=== PATIENT | female | born 1940 | race Caucasian/White ===

== ENCOUNTER 2020-10-30 21:08 | Inpatient (IN) | payer MEDICARE, OTHER ==
[~2020-10-30] VITALS: Ht 154.9 cm; Wt 48.7 kg
--- NOTE | 2020-10-30 21:08 | NUR ---
ANA FROM [facility] C/O HYPOTENSION AND PRESSURE ULCER. PER RA, REC'D 200ML NS EN ROUTE, PT AAOX0, NON VERBAL, NOT IN ACUTE DISTRESS, GOWNED, PLACED ON MONITOR, NOTED HYPOTENSIVE, PENDING ER PROVIDE REVAL
[2020-10-30] MEDS ORDERED: CEFEPIME 1 GM in IV D5W 50 ML IV ONE (22:00)
[2020-10-30] MEDS ORDERED: IV NS 0.9% 1,000 ML BAG IV ONE (22:00)
[2020-10-30] MEDS ORDERED: VANCOMYCIN 1 GM in IV D5W 250 ML IV ONE (22:00)
[2020-10-30 22:12] LABS: ALANINE AMINOTRANSFERASE 8 U/L (12-78); ALKALINE PHOSPHATASE 70 U/L (46-116); ASPARTATE AMINOTRANSFERASE 20 U/L (15-37); BILIRUBIN,DIRECT 0.1 mg/dL (0.0-0.2); BILIRUBIN,TOTAL 0.2 mg/dL (0.2-1.0); CALCIUM, SERUM 8.9 mg/dL (8.5-10.1); CARBON DIOXIDE 26 mmol/L (21-32); CHLORIDE 93 mmol/L (98-107); CREATININE 1.3 mg/dL (0.6-1.3); GLUCOSE 190 mg/dL (74-106); POTASSIUM 4.1 mmol/L (3.5-5.1); SODIUM SERUM 128 mmol/L (136-145); UREA NITROGEN, BLOOD 44 mg/dL (7-18)
[2020-10-30] MEDS ORDERED: NOREPINEPHRINE 4 MG/4 ML AMPUL IV ONE (22:40)
--- NOTE | 2020-10-30 23:00 | NUR ---
RT IJ CENTRAL LINE PLACED BY DR. PEARSON. XRAY CONFIRMATION ORDERED. AWAITING RESULTS
[2020-10-30 23:02] LABS: BASOPHILS % (AUTO) 0.1 % (0.0-2.0); EOSINOPHILS % (AUTO) 0.2 % (0.0-6.0); LYMPHOCYTES # (AUTO) 0.9 /CMM (0.8-4.8); LYMPHOCYTES % (AUTO) 6.3 % (20.0-44.0); MEAN CORPUSCULAR HGB CONC 33 g/dl (31.0-36.0); MEAN CORPUSCULAR VOLUME 106 fL (82-100); MONOCYTES # (AUTO) 1.1 /CMM (0.1-1.30); MONOCYTES % (AUTO) 7.9 % (2.0-12.0); NEUTROPHILS # (AUTO) 11.9 /CMM (1.8-8.9); NEUTROPHILS % (AUTO) 85.5 % (43.0-81.0); PLATELET COUNT (AUTO) 265 /CMM (150-450); WHITE BLOOD COUNT (AUTO) 13.9 K/uL (4.3-11.0)
[2020-10-30 23:04] LABS: RED BLOOD CELL COUNT(AUTO) 1.59 MIL/uL (4.0-5.2)
[2020-10-30 23:06] LABS: HEMATOCRIT 17 % (33-45); HEMOGLOBIN 5.6 g/dL (11.5-14.8)
[2020-10-30 23:07] LABS: BILIRUBIN,URINE NEGATIVE (NEGATIVE); COLOR,URINE YELLOW (YELLOW); LEUKOCYTE ESTERASE ,URINE MODERATE (NEGATIVE); NITRITE, URINE NEGATIVE (NEGATIVE); PROTEIN,URINE 100 mg/dl (NEGATIVE); UGLUCOSE NEGATIVE (NEGATIVE); UROBILINOGEN,URINE 0.2 EU/dL (0.2)
[2020-10-30 23:16] LABS: BACTERIA,URINE 2+ /HPF (None Seen); RBC,URINE TOO NUMEROUS TO COUN /HPF (0-2); WBC,URINE TOO NUMEROUS TO COUN /HPF (0-3)
[2020-10-30 23:17] LABS: SQUAMOUS EPITHELIAL CELL,UR Many /HPF (None Seen); URINE AMORPHOUS URATE Many /HPF (None Seen)
[2020-10-30 23:18] LABS: LYMPHOCYTES % (MANUAL) 7 % (16-48); NEUTROPHILS % (MANUAL) 86 (42-76)
[2020-10-30 23:19] LABS: MONOCYTES % (MANUAL) 7 % (0-11.0)
[2020-10-31] MEDS ORDERED: NOREPINEPHRINE 8 MG in IV NS 0.9% 242 ML IV PRN ×2
[2020-10-31] MEDS ORDERED: ZOLPIDEM TARTRATE 5 MG TABLET PO PRN
[2020-10-31] MEDS ORDERED: ONDANSETRON HCL/PF 4 MG/2 ML VIAL IVP PRN
[2020-10-31] MEDS ORDERED: Z GUARD REMEDY 2 OZ OINT TP PRN
[2020-10-31] MEDS ORDERED: ACETAMINOPHEN 325 MG TABLET PO PRN
[2020-10-31] MEDS ORDERED: MAGNESIUM HYDROXIDE 30 ML UDC PO PRN
[2020-10-31] MEDS ORDERED: HYDROCODONE/APAP 5/325MG TABLET PO PRN
[2020-10-31] MEDS ORDERED: MAG HYDROX/AL HYDROX/SIMETH 30 ML UDC PO PRN
--- NOTE | 2020-10-31 | NUR ---
LEVOPHED STARTED ON R IJ, TITRATED PER PROTOCOL.
[2020-10-31] MEDS ORDERED: CEFEPIME 1 GM VIAL ONE (02:08)
[2020-10-31] MEDS ORDERED: VANCOMYCIN 1 GM VIAL ONE (02:08)
[2020-10-31] MEDS: IV NS 0.9% 1,000 ML IV SCH ×3 (02:21→20:12)
[2020-10-31] MEDS: CEFEPIME 1 GM in IV D5W 50 ML IV SCH (02:21)
[2020-10-31 02:36] LABS: HEMOGLOBIN 6.3 g/dL (11.5-14.8)
[2020-10-31 05:01] LABS: BASOPHILS % (AUTO) 0.2 % (0.0-2.0); EOSINOPHILS % (AUTO) 0.1 % (0.0-6.0); HEMATOCRIT 33 % (33-45); HEMOGLOBIN 10.9 g/dL (11.5-14.8); LYMPHOCYTES # (AUTO) 1.1 /CMM (0.8-4.8); LYMPHOCYTES % (AUTO) 10.6 % (20.0-44.0); MEAN CORPUSCULAR HGB CONC 33 g/dl (31.0-36.0); MEAN CORPUSCULAR VOLUME 108 fL (82-100); MONOCYTES # (AUTO) 0.7 /CMM (0.1-1.30); MONOCYTES % (AUTO) 6.7 % (2.0-12.0); NEUTROPHILS # (AUTO) 8.4 /CMM (1.8-8.9); NEUTROPHILS % (AUTO) 82.4 % (43.0-81.0); PLATELET COUNT (AUTO) 247 /CMM (150-450); RED BLOOD CELL COUNT(AUTO) 3.06 MIL/uL (4.0-5.2); WHITE BLOOD COUNT (AUTO) 10.3 K/uL (4.3-11.0)
[2020-10-31 05:11] LABS: BILIRUBIN,DIRECT 0.1 mg/dL (0.0-0.2); BILIRUBIN,TOTAL 0.3 mg/dL (0.2-1.0); TOTAL PROTEIN, SERUM 6.8 g/dL (6.4-8.2)
[2020-10-31 05:13] LABS: CALCIUM, SERUM 8.1 mg/dL (8.5-10.1); CREATININE 1.3 mg/dL (0.6-1.3); MAGNESIUM 1.9 mg/dL (1.8-2.4); PHOSPHORUS 3.8 mg/dL (2.5-4.9); POTASSIUM 3.5 mmol/L (3.5-5.1)
--- NOTE | 2020-10-31 05:20 | NUR ---
LAB RESULTED HGB 10.9. CALLED DR. MOULTON FOR POSSIBLE REDRAW, PT HAS NOT YET REC'D ANY PRBC AT THIS TIME. PER LAB HOLD PRBC ORDER. HGB ORIGINALLY 6.3 FROM PREV DRAW
[2020-10-31 06:48] LABS: HEMOGLOBIN 6.5 g/dL (11.5-14.8)
--- NOTE | 2020-10-31 06:49 | NUR ---
RPT H/H RESULTED, HGB 6.5, WILL RESUME AND GIVE 3UNITS PRBC ORDERED. DR. KENNEY TELLEZ
--- NOTE | 2020-10-31 07:30 | NUR ---
PATIENT A/OX1, 1ST UNIT OF PRBC INITIATED.
[2020-10-31] MEDS ORDERED: MONT10TA22 GT (07:45)
[2020-10-31] MEDS ORDERED: GABA-532 GT (07:45)
[2020-10-31] MEDS ORDERED: MULT-447 GT (07:45)
[2020-10-31] MEDS ORDERED: ACET-868 GT ×2 (07:45)
[2020-10-31] MEDS ORDERED: BISA10SU11 RC (07:45)
[2020-10-31] MEDS ORDERED: ARGI1POW13 GT (07:45)
[2020-10-31] MEDS ORDERED: SODI480S2 TD (07:45)
[2020-10-31] MEDS ORDERED: MIRT15TA7 GT (07:45)
[2020-10-31] MEDS ORDERED: ESCI5TAB GT (07:45)
[2020-10-31] MEDS ORDERED: CHOL100062 GT (07:45)
[2020-10-31] MEDS ORDERED: INSU100V39 SQ (07:45)
[2020-10-31] MEDS ORDERED: DOCU50LI GT (07:45)
[2020-10-31] MEDS ORDERED: AMIN30LI2 GT (07:45)
[2020-10-31] MEDS ORDERED: CLOT15CR5 TP (07:45)
[2020-10-31] MEDS ORDERED: BETH50TA2 GT (07:45)
[2020-10-31] MEDS ORDERED: POLY17PO4 GT (07:45)
[2020-10-31] MEDS ORDERED: METO25TA20 GT (07:45)
[2020-10-31] MEDS ORDERED: XEROFORM TD (07:45)
[2020-10-31] MEDS ORDERED: COLL30OI TP (07:45)
[2020-10-31] MEDS ORDERED: ASCO-352 GT (07:45)
[2020-10-31] MEDS ORDERED: FERR300L GT (07:45)
[2020-10-31] MEDS ORDERED: SENN-261 GT (07:45)
[2020-10-31] MEDS ORDERED: APIX5TAB GT (07:45)
[2020-10-31] MEDS ORDERED: GEL100GE TD (07:45)
[2020-10-31] MEDS ORDERED: ZINC1CAP2 GT (07:45)
[2020-10-31] MEDS ORDERED: LEVO75TA7 GT (07:45)
[2020-10-31] MEDS ORDERED: LACT10SO3 GT (07:45)
[2020-10-31] MEDS ORDERED: NUT.237L30 GT (07:45)
[2020-10-31] MEDS ORDERED: QUET25TA GT (07:45)
--- NOTE | 2020-10-31 08:00 | NUR ---
LEVOPHED HELD AT THIS TIME, BP 169/100.
--- NOTE | 2020-10-31 09:52 | NUR ---
PATIENT'S 1ST UNIT COMPLETED. VSS. NO DISTRESS NOTED. PATIENT HAD NO ADVERSE REACTION, NO S/SX OF FLUID OVERLOAD AT THIS TIME.
--- NOTE | 2020-10-31 10:04 | NUR ---
2ND UNIT OF PRBC STARTED. VSS.
--- NOTE | 2020-10-31 11:34 | NUR ---
PATIENT RESTING, NO DISTRESS NOTED, VSS.
--- NOTE | 2020-10-31 12:28 | NUR ---
2ND UNIT OF PRBC COMPLETED. PHLEB AT BEDSIDE FOR REPEAT CDC DRAW. WILL INFORM NIKO GORMAN OF RESULT AND WILL VERIFY 3RD PRBC ORDER.
[2020-10-31 13:37] LABS: HEMOGLOBIN 11.1 g/dL (11.5-14.8)
--- NOTE | 2020-10-31 14:22 | NUR ---
REPEAT HGB IS 11.1 INFORMED NIKO GORMAN, GAVE ORDER TO HOLD 3RD UNIT OF PRBC.
--- NOTE | 2020-10-31 16:11 | NUR ---
REPORT GIVEN TO MELANIE GARCIA FOR JOSE.
--- NOTE | 2020-10-31 16:44 | NUR ---
bed 200
--- NOTE | 2020-10-31 17:15 | NUR ---
patient transferred to room 200 via acls protocol. Patient's NS IV fluids infusing and endorsed to Ty GARCIA.
[2020-10-31 18:34] LABS: OCCULT BLOOD STOOL NEGATIVE (NEGATIVE)
--- NOTE | 2020-10-31 19:00 | NUR ---
FIRE CONTROL TECHNICIAN B ADMITTING NOTES ADMITTED PATIENT FROM ER. AWAKE AND VERBALLY RESPONSIVE, A/O X1, CONFUSED, SPEAKS FOREIGN LANGUAGE. BREATHING EVEN AND UNLABORED, TOLERATING ROOM AIR. CURRENTLY NPO. IV LINES NOTED ON R IJ PICC, R HAND #20, AND RAC #20; PATENT AND INTACT. PHOTOS OF SKIN ISSUES TAKEN AND RECORDED; DRESSING CHANGED APPLICABLE. GTUBE IS INTACT W/ DRESSING C/D/I. ARMB[place] PLACED. BELONGINGS LIST IN CHART. SAFETY MEASURES IN PLACE: BED IS LOCKED AND ON LOWEST POSITION, SIDE RAILS UP X2, CALL LIGHT WITHIN REACH. WILL ENDORSE TO PACKAGING DESIGN ENGINEER RN FOR JOSE.
[2020-10-31 19:08] LABS: HEMOGLOBIN 9.4 g/dL (11.5-14.8)
--- NOTE | 2020-10-31 19:45 | NUR ---
COMPRESS MACHINE OPERATOR OPENING NOTES PATIENT IN BED A/OX1. ON ROOM AIR AND TOLERATING WELL. NO S/S OF DISTRESS NOTED AT THIS TIME. ON NPO DIET. R IJ INTACT; DRESSING C/D/I. GTUBE PEG PATENT AND INTACT. IV R HAND # 20; PATENT AND INTACT. RAC #20; PATENT AND INTACT. SAFETY MEASURES IN PLACE; BED IS LOWEST LOCKED POSITION; SIDE RAILS UPX2; CALL LIGHT WITHIN REACH. WILL CONTINUE TO MONITOR.
[2020-10-31 20:00] VITALS: BP 110/64
[2020-11-01] VITALS (13 sets, daily range): BP systolic 48–121; BP diastolic 22–72
[2020-11-01] MEDS ORDERED: CEFEPIME 1 GM VIAL ONE (01:00)
[2020-11-01 01:16] LABS: HEMOGLOBIN 9.8 g/dL (11.5-14.8)
[2020-11-01] MEDS: CEFEPIME 1 GM in IV D5W 50 ML IV SCH ×4 (01:39→22:13)
--- NOTE | 2020-11-01 06:45 | NUR ---
PRINTING EQUIPMENT MECHANIC NOTES - PATIENT NOTED WITH SATURATED OOZING BLEEDING AND CLOTS ON PI ON R BUTTOCK; CHANGED DRESSING. 0550 REASSESSED PATIENT AT BP 48/22, P 56. CALLED RAPID RESPONSE; CHARGE NURSE AWARE. CALLED DR. MOULTON AND ORDERED FOR NS 500ML BOLUS, STAT CBC. INFUSED NS 500ML BOLUS 0615 BP 65/36, P 82 0630 BP 74/42, P 83 PATIENT AWAKE AND TALKING; NO CHANGES IN LOC. SKIN COOL TO TOUCH AND PALE. WILL CONTINUE TO MONITOR.
[2020-11-01 06:55] LABS: BASOPHILS % (AUTO) 0.3 % (0.0-2.0); EOSINOPHILS % (AUTO) 2.1 % (0.0-6.0); LYMPHOCYTES # (AUTO) 1.2 /CMM (0.8-4.8); LYMPHOCYTES % (AUTO) 11.2 % (20.0-44.0); MEAN CORPUSCULAR HGB CONC 35 g/dl (31.0-36.0); MEAN CORPUSCULAR VOLUME 92 fL (82-100); MONOCYTES # (AUTO) 0.8 /CMM (0.1-1.30); MONOCYTES % (AUTO) 7.4 % (2.0-12.0); NEUTROPHILS # (AUTO) 8.6 /CMM (1.8-8.9); PLATELET COUNT (AUTO) 195 /CMM (150-450); WHITE BLOOD COUNT (AUTO) 10.9 K/uL (4.3-11.0)
[2020-11-01] MEDS: IV NS 0.9% 1,000 ML IV SCH (07:19)
[2020-11-01 07:31] LABS: ALBUMIN 1.5 g/dL (3.4-5.0); BILIRUBIN,TOTAL 0.3 mg/dL (0.2-1.0); CALCIUM, SERUM 7.8 mg/dL (8.5-10.1); MAGNESIUM 1.7 mg/dL (1.8-2.4); PHOSPHORUS 2.9 mg/dL (2.5-4.9); POTASSIUM 3.4 mmol/L (3.5-5.1)
--- NOTE | 2020-11-01 07:34 | NUR ---
CONSTRUCTION PROJECT COORDINATOR CLOSING NOTES PATIENT IN BED A/OX1; RESPONSIVE. ON ROOM AIR AND TOLERATING WELL. ON EXTERNAL CARDIAC MONITORING READING SR AND HR AT 83. ON NPO DIET. R IJ INTACT; DRESSING INTACT. GTUBE PEG PATENT AND INTACT. IV R HAND # 20; PATENT AND INTACT. RAC #20; PATENT AND INTACT. DRESSING ON BILATERAL BUTTOCKS AND BILATERAL HEELS KEPT C/D/I. MARIE FROM LAB REPORTED CRITICAL LABS: HGB 6.2 AND HCT 18.0. SAFETY MEASURES IN PLACE; BED IS LOWEST LOCKED POSITION; SIDE RAILS UPX2; CALL LIGHT WITHIN REACH. WILL CONTINUE TO MONITOR. ENDORSE PLAN OF CARE TO ONCOMING MORNING NURSE.
[2020-11-01 07:39] LABS: RED BLOOD CELL COUNT(AUTO) 1.93 MIL/uL (4.0-5.2)
[2020-11-01 07:46] LABS: HEMATOCRIT 18 % (33-45); HEMOGLOBIN 6.2 g/dL (11.5-14.8)
[2020-11-01] MEDS ORDERED: CELLULOSE,OXIDIZED 1 EA PACK MC STA (07:55)
--- NOTE | 2020-11-01 08:30 | NUR ---
WOUND CARE CONSULT: PT PRESENTS WITH MULTIPLE WOUNDS, PRESENT ON ADMISSION INCLUDING RT BUTTOCK WOUND WHICH HAS BEEN BLEEDING (CONSTANT OOZING OF BLOOD). DR MATA AND DR MARTINEZ NOTIFIED OF SURGICAL AND DPM CONSULT REQUESTS. RECEIVED ORDERS FROM LUCIANO APONTE P.A. FOR SURGICEL TO BE APPLIED TO RT BUTTOCK WOUND FOR HEMOSTASIS. 3 PIECES OF SUGICEL (4X8) APPLIED AND HEMOSTASIS ACHIEVED. COVERED WITH GAUZE, ABD PADS APPLIED PRESSURE DRESSING WITH SURGICAL TAPE. PT TOLERATED WELL. DISCUSSED WITH Gavin LUONG P.A. RECOMMENDATIONS MADE FOR SKIN PROTECTION. DISCUSSED WITH NURSING STAFF. FIRST STEP LOW AIRLOSS MATTRESS ORDERED.
--- NOTE | 2020-11-01 10:18 | NUR ---
TELE/RN NOTE PER NUHA GAO TO USE RIGHT IJ FOR BLOOD TRANSFUSION AND MEDICATION ADMINISTRATION.
[2020-11-01 11:24] LABS: BAND % (MANUAL) 16 % (0.0-5.0); LYMPHOCYTES % (MANUAL) 8 % (16-48); MONOCYTES % (MANUAL) 4 % (0-11.0); NEUTROPHILS % (MANUAL) 72 (42-76)
--- NOTE | 2020-11-01 11:28 | NUR ---
TELE/RN BLOOD TRANSFUSION IN PROCESS. NO ADVERSE SIDE EFFECTS NOTED.
--- NOTE | 2020-11-01 12:52 | NUR ---
RN NOTE MAXIPINE DUE AT 0900 IS STARTED LATE DUE TO PATIENT WAS RECEIVING BLOOD TRANSFUSION VIA RIGHT IJ AND THE PATIENT HAS ONLY RIGHT IJ FOR MEDICATION FOR USE. PHARMACY IS MADE AWARE.
[2020-11-01] MEDS: Magnesium 1GM/D5W 100ML PREMIX 100 ML IV SCH ×2 (13:50→15:07)
[2020-11-01] MEDS: IV NS 0.9% 1,000 ML IV PRN ×2 (13:53→22:07)
[2020-11-01 15:36] LABS: HEMOGLOBIN 7.1 g/dL (11.5-14.8)
--- NOTE | 2020-11-01 15:56 | NUR ---
MS/RN NOTE RECEIVED A CALL FROM LAB REPORTING THAT THE PATIENT IS POSITIVE MRSA OF NARES. NUHA NAGEL IS MADE AWARE WITH A NEW ORDER. NOTED AND CARRIED OUT.
[2020-11-01] MEDS: POTASSIUM CL. PREMIX PERIPHER. 50 ML IV SCH ×2 (16:44→17:54)
[2020-11-01] MEDS: DAKINS QUARTER STRENGTH (0.125%) 480 ML BOTTLE TOP SCH (17:17)
[2020-11-01] MEDS ORDERED: ANESTHESIA TRAY IN PYXIS 1 EA TRAY MC ONE (18:25)
--- NOTE | 2020-11-01 18:26 | NUR ---
TELE/RN NOTE THE PATIENT ALERT AND ORIENTED X1. DENIES PAIN. IN ROOM AIR AND OXYGEN SATURATION IS AT 98%. DENIES SOB. RESPIRATION REGULAR AND UNLABORED. PATIENT IS IN NO APPARENT DISTRESS. RIGHT IV INTACT. GT PRESENT AND NOT IN USE. WOUND DRESSINGS ON PER ORDER. NO BLEEDING FROM THE WOUNDS NOTED. BED LOW AND LOCKED. SIDE RAILS UP X3. CALL LIGHT WITHIN REACH. WILL ENDORSE TO ARTS THERAPIST. CREDIT HISTORIAN CLOSING NOTES PATIENT IN BED A/OX1; RESPONSIVE. ON ROOM AIR AND TOLERATING WELL. ON EXTERNAL CARDIAC MONITORING READING SR AND HR AT 83. ON NPO DIET. R IJ INTACT; DRESSING INTACT. GTUBE PEG PATENT AND INTACT. IV R HAND # 20; PATENT AND INTACT. RAC #20; PATENT AND INTACT. DRESSING ON BILATERAL BUTTOCKS AND BILATERAL HEELS KEPT C/D/I. MARIE FROM LAB REPORTED CRITICAL LABS: HGB 6.2 AND HCT 18.0. SAFETY MEASURES IN PLACE; BED IS LOWEST LOCKED POSITION; SIDE RAILS UPX2; CALL LIGHT WITHIN REACH. WILL CONTINUE TO MONITOR. ENDORSE PLAN OF CARE TO ONCOMING MORNING NURSE.
--- NOTE | 2020-11-01 18:29 | NUR ---
TELE/RN NOTE THE PATIENT ALERT AND ORIENTED X1. DENIES PAIN. IN ROOM AIR AND OXYGEN SATURATION IS AT 98%. DENIES SOB. RESPIRATION REGULAR AND UNLABORED. PATIENT IS IN NO APPARENT DISTRESS. RIGHT IV INTACT. GT PRESENT AND NOT IN USE. WOUND DRESSINGS ON PER ORDER. NO BLEEDING FROM THE WOUNDS NOTED. BED LOW AND LOCKED. SIDE RAILS UP X3. CALL LIGHT WITHIN REACH. WILL ENDORSE TO ELEMENTARY READING TUTOR. Addendum: 11/01/20 at 1835 by DUKE VERGARA RN TELE/RN NOTE TELE BOX READING IS SR 79.
--- NOTE | 2020-11-01 19:00 | NUR ---
RECEIVED EYES CLOSED WILL OPEN TO TOUCH AND STIMULI EGD TEAM TO TAKE HER FOR EGD EXAM
[2020-11-01] MEDS: MUPIROCIN OINT 2% 22 GM TUBE NS SCH ×2 (20:47→22:14)
[2020-11-01 21:09] LABS: HEMOGLOBIN 6.9 g/dL (11.5-14.8)
[2020-11-01] MEDS: VANCOMYCIN 1 GM in IV D5W 250 ML IV SCH (22:07)
--- NOTE | 2020-11-01 22:30 | NUR ---
CALL PLACED TO MD MOULTON LATEST H/H 6.06/20 INSTRUCTED TO GIVE 1 UNIT PRBCS AND DO H/H 1 HOUR AFTER THE INFUSION 2ND TOLD HIM THE RESULTS OF THE EGD FINDING SHOWING GASTRITIS AND ORDER TO START THE GT FEEDING...TO START THE FEEDING SAME S SHE HAD AT [facility]...GLUCERNA 1.2 START AT 2PM AND OFF AT 10AM RUNNING FOR 20 HOURS QDAY RATE 50 ML/HOUR AWARE THAT THE BLOOD CULTURES DONE 10/31 1 BOTTLE SHOWED GRAM +COCCI CLUSTERS AND THE 2ND BOTTLE IS BEING SENT OUT TO BE TESTED
--- NOTE | 2020-11-01 22:55 | NUR ---
BLOOD STARTED H/H 6.04/19 AT 2100 THIS EVEVNING TO BE GIVEN 1 UNIT PRBCS
[2020-11-02] VITALS (7 sets, daily range): BP systolic 108–142; BP diastolic 53–80
--- NOTE | 2020-11-02 04:18 | NUR ---
CLOSING NOTES: ALERT TO SELF SPEAKS FARSI AND SOME DANISH SELECTIVE WHEN SHE WANT TO SPEAK AND WHEN SHE DOES SHOTE COMMENTS "WHATS UP!" WAS ONE SHE SAID. H/H 2100 BLOOD DRAW WAS 6.06/20 SP EGD 11/01 @ 1900...SHOWING GASTRITIS BX WAS DONE ...BLOOD CULTURES DONE 10/31 1 BOTTLE SHOWS COCCI + CLUSTERS MD MOULTON CALLED AND MADE AWARE. ORDERS TO GIVE 1 UNIT PRBCS H/H IN THE AM START PEG TUBE FEEDING SAME SHE WAS RECEIVING AT [facility]...GLUCERNA 1.2 50 ML PER HOUR FOR 20 HOURS VIA PUMP 1000ML/1200KCAL PER DAY TURN ON @ 2:00PM AND OFF @ 10:00AM OR UNTIL VOLUME COMPLETED AFEBILE THIS 12 HOURS GONZALES DRAINAGE CLEAR YELLOW
[2020-11-02 06:24] LABS: BASOPHILS # (AUTO) 0.1 /CMM (0.0-0.2); BASOPHILS % (AUTO) 0.6 % (0.0-2.0); EOSINOPHILS % (AUTO) 2.4 % (0.0-6.0); HEMATOCRIT 24 % (33-45); HEMOGLOBIN 8.3 g/dL (11.5-14.8); LYMPHOCYTES # (AUTO) 1.4 /CMM (0.8-4.8); LYMPHOCYTES % (AUTO) 14.6 % (20.0-44.0); MEAN CORPUSCULAR HGB CONC 34 g/dl (31.0-36.0); MEAN CORPUSCULAR VOLUME 91 fL (82-100); MONOCYTES # (AUTO) 0.8 /CMM (0.1-1.30); MONOCYTES % (AUTO) 8.2 % (2.0-12.0); NEUTROPHILS # (AUTO) 7.1 /CMM (1.8-8.9); NEUTROPHILS % (AUTO) 74.2 % (43.0-81.0); PLATELET COUNT (AUTO) 174 /CMM (150-450); RED BLOOD CELL COUNT(AUTO) 2.67 MIL/uL (4.0-5.2); WHITE BLOOD COUNT (AUTO) 9.5 K/uL (4.3-11.0)
[2020-11-02 06:29] LABS: CALCIUM, SERUM 7.9 mg/dL (8.5-10.1); CREATININE 0.9 mg/dL (0.6-1.3); MAGNESIUM 2.3 mg/dL (1.8-2.4); PHOSPHORUS 2.6 mg/dL (2.5-4.9); POTASSIUM 3.1 mmol/L (3.5-5.1)
--- NOTE | 2020-11-02 07:30 | NUR ---
ms rn received on bed, awake,confused,not in any form of distress,respirations even and unlabored,no sob noted,patient on room air,will monitor patient.
[2020-11-02] MEDS ORDERED: CELLULOSE,OXIDIZED 1 EA PACK MC ONE (08:00)
[2020-11-02 08:07] LABS: PTH, INTACT 103 pg/mL (15-65)
[2020-11-02] MEDS ORDERED: POTASSIUM CHLORIDE 20 MEQ POWDER PACKET PO ONE (09:00)
--- NOTE | 2020-11-02 09:00 | NUR ---
ms rn due meds given,tolerated well.
[2020-11-02] MEDS: DAKINS QUARTER STRENGTH (0.125%) 480 ML BOTTLE TOP SCH (09:28)
[2020-11-02] MEDS: THERAHONEY GEL 1.5 OZ TUBE TP SCH (09:29)
[2020-11-02] MEDS ORDERED: DEXTROSE 50%-WATER 50 ML DISP.SYRIN IV PRN (09:30)
--- NOTE | 2020-11-02 12:00 | NUR ---
ms rn was seen by mary wound pa,right hip not bleeding anymore, no debridement done,packing and dressing done by rashaun.
[2020-11-02] MEDS ORDERED: LIDOCAINE 1%-EPI 1:100,000 50 ML VIAL IJ ONE (12:30)
--- NOTE | 2020-11-02 12:30 | NUR ---
ms rn patient was transferred to [facility],report given to lukas woodruff for papito.
[2020-11-02] MEDS: BLOOD SUGAR DIAGNOSTIC 1 EACH STRIP IN SCH ×3 (12:31→23:27)
[2020-11-02] MEDS ORDERED: SILVER NITRATE APPLICATOR 1 EA BOX TP ONE (13:00)
[2020-11-02 13:06] LABS: *SPE A/G RATIO 0.7 (0.7-1.7); *SPE ALBUMIN 1.8 g/dL (2.9-4.4); *SPE ALPHA-1-GLOBULIN 0.3 g/dL (0.0-0.4); *SPE ALPHA-2-GLOBULIN 0.6 g/dL (0.4-1.0); *SPE BETA GLOBULIN 0.7 g/dL (0.7-1.3); *SPE GLOBULIN, TOTAL 2.7 g/dL (2.2-3.9); *SPE M-SPIKE Not Observed g/dL (Not Observed); *SPEGAMMA GLOBULIN 1.1 g/dL (0.4-1.8)
--- NOTE | 2020-11-02 13:11 | NUR ---
Social Service APS Report: and [facility] request marriage and family social worker to do a APS wound report on patient Marla Galvan. Pt is located in [facility] 2nd floor room 200/ bed 1. SW did a online APS report at 1300pm (Intake [id number]). SW gave all proper information to the APS report and will wait for APS assistance if needed. Plan: SW did a APS wound online at report at 1300pm (Intake [id number]). SW will give any assistance if APS contacts social service office ([phone]).
[2020-11-02] MEDS: IV NS 0.9% 1,000 ML IV PRN (14:55)
[2020-11-02] MEDS: GLUCERNA 1.2 1,000 ML BOTTLE GT PRN (14:55)
[2020-11-02] MEDS: VANCOMYCIN 1 GM in IV D5W 250 ML IV SCH (15:02)
[2020-11-02] MEDS ORDERED: LIDOCAINE 1% INJ 50 ML MDV IJ ONE (16:00)
[2020-11-02] MEDS: SENNOSIDES 8.6 MG TABLET GT SCH (16:53)
[2020-11-02] MEDS: QUETIAPINE FUMARATE 25 MG TABLET GT SCH (16:53)
[2020-11-02] MEDS: METOPROLOL TARTRATE 25 MG TABLET GT SCH (16:53)
[2020-11-02] MEDS: FERROUS SULFATE UDC 300 MG/5 ML UDC GT SCH (16:53)
[2020-11-02] MEDS: BETHANECHOL CHLORIDE (25 MG) 25 MG TABLET PO SCH (16:53)
[2020-11-02] MEDS: PROSOURCE / PROSTAT (PYXIS) 30 ML UDC GT SCH (16:54)
[2020-11-02] MEDS ORDERED: BETHANECHOL CHLORIDE 50 MG TABLET PO SCH (17:00)
[2020-11-02] MEDS ORDERED: Medication Not On Formulary EA (Arginine/Ascorbate Sod/Vite AC (Arginaid Powder) 1 EACH) GT SCH (17:00)
[2020-11-02] MEDS: GABAPENTIN 100 MG CAPSULE GT SCH (17:09)
--- NOTE | 2020-11-02 18:51 | NUR ---
MS/RN - Shift remarks Patient opens eyes to voice and touch, afebrile, stable on room air, no s/s of pain, no active bleeding, no new issues, tolerating tube feeding well. Powell catheter in place for wound management. Patient for wound debridement on bilateral hips tomorrow, obtained consent from brother Frederick Galvan. Aspiration precautions maintained. Will continue with current medical management.
[2020-11-02] MEDS: MUPIROCIN OINT 2% 22 GM TUBE NS SCH (21:00)
[2020-11-02] MEDS: CEFEPIME 1 GM in IV D5W 50 ML IV SCH (21:16)
[2020-11-02] MEDS: INSULIN REGULAR, HUMAN 100 UNIT/ML 3 ML VIAL SQ PRN (22:43)
[2020-11-02] MEDS: MONTELUKAST SODIUM (10MG) 10 MG TABLET GT SCH (23:45)
[2020-11-02] MEDS: MIRTAZAPINE 15 MG TABLET GT SCH (23:45)
--- NOTE | 2020-11-03 02:54 | NUR ---
MS/TELE/RN G TUBE FEEDING RESIDUAL AT 20:00 [address] CONSTANTLY CHECKED THE RESIDUAL, AT 02:00, RESIDUAL WAS ZERO, RESTARTED THE FEEDING AT THIS TIME. WILL MONITOR.
[2020-11-03] MEDS: BLOOD SUGAR DIAGNOSTIC 1 EACH STRIP IN SCH ×4 (05:47→22:34)
[2020-11-03] MEDS: IV NS 0.9% 1,000 ML IV PRN ×2 (05:47→20:51)
--- NOTE | 2020-11-03 06:47 | NUR ---
MS/TELE/RN MORNING CARE WAS DONE, TOTAL LINEN CHANGE RENDERED, BOWEL MOVEMENT NOTED, SOFT, BROWN, GOOD SKIN CARE DONE, ORAL CARE DONE, G TUBE FEEDING INFUSING, NO RESIDUAL NOTED, HOB ELEVATED, ALL NEEDS ATTENDED AT THIS TIME, WILL CONTINUE TO MONITOR.
[2020-11-03 08:00] VITALS: BP 150/74
--- NOTE | 2020-11-03 08:00 | NUR ---
MS/RN OPENING NOTES RECEIVED PATIENT ON BED AWAKE NONVERBAL. PATIENT IS ON ROOM AIR SATURATION 100%. PATIENT IN NO APPARENT RESPIRATORY DISTRESS NOTED. NO SIGN AND SYMPTOM OF PAIN NOTED AT THIS TIME. WILL CONTINUE TO MONITOR.
[2020-11-03 08:16] LABS: BASOPHILS # (AUTO) 0.1 /CMM (0.0-0.2); BASOPHILS % (AUTO) 0.5 % (0.0-2.0); EOSINOPHILS % (AUTO) 2.8 % (0.0-6.0); HEMATOCRIT 28 % (33-45); HEMOGLOBIN 9.1 g/dL (11.5-14.8); LYMPHOCYTES # (AUTO) 1.3 /CMM (0.8-4.8); LYMPHOCYTES % (AUTO) 12.4 % (20.0-44.0); MEAN CORPUSCULAR HGB CONC 33 g/dl (31.0-36.0); MEAN CORPUSCULAR VOLUME 94 fL (82-100); MONOCYTES # (AUTO) 0.8 /CMM (0.1-1.30); MONOCYTES % (AUTO) 7.4 % (2.0-12.0); NEUTROPHILS # (AUTO) 8.1 /CMM (1.8-8.9); NEUTROPHILS % (AUTO) 76.9 % (43.0-81.0); PLATELET COUNT (AUTO) 224 /CMM (150-450); RED BLOOD CELL COUNT(AUTO) 2.91 MIL/uL (4.0-5.2); WHITE BLOOD COUNT (AUTO) 10.6 K/uL (4.3-11.0)
[2020-11-03 08:32] LABS: CALCIUM, SERUM 8.3 mg/dL (8.5-10.1); CREATININE 0.9 mg/dL (0.6-1.3); POTASSIUM 3.6 mmol/L (3.5-5.1)
[2020-11-03] MEDS: SENNOSIDES 8.6 MG TABLET GT SCH ×2 (09:02→17:49)
[2020-11-03] MEDS: POLYETHYLENE GLYCOL 3350 17 GM POWD.PACK GT SCH (09:02)
[2020-11-03] MEDS: CHOLECALCIFEROL 1,000 UNIT TABLET (VIT D3) GT SCH (09:02)
[2020-11-03] MEDS: BETHANECHOL CHLORIDE (25 MG) 25 MG TABLET PO SCH ×2 (09:02→17:49)
[2020-11-03] MEDS: FERROUS SULFATE UDC 300 MG/5 ML UDC GT SCH ×2 (09:02→18:02)
[2020-11-03] MEDS: LEVOTHYROXINE SODIUM 75 MCG TABLET GT SCH (09:02)
[2020-11-03] MEDS: METOPROLOL TARTRATE 25 MG TABLET GT SCH ×2 (09:03→17:50)
[2020-11-03] MEDS: MULTIVIT W/MINERALS 1 TAB TABLET GT SCH (09:03)
[2020-11-03] MEDS: ZINC SULFATE 220 MG CAPSULE GT SCH (09:03)
[2020-11-03] MEDS: QUETIAPINE FUMARATE 25 MG TABLET GT SCH ×2 (09:04→17:49)
[2020-11-03] MEDS: ASCORBIC ACID 500 MG TABLET GT SCH (09:04)
[2020-11-03] MEDS: ESCITALOPRAM OXALATE (10 MG) 10 MG TABLET GT SCH (09:08)
[2020-11-03] MEDS: CEFEPIME 1 GM in IV D5W 50 ML IV SCH ×2 (09:08→20:57)
[2020-11-03] MEDS: PROSOURCE / PROSTAT (PYXIS) 30 ML UDC GT SCH ×2 (09:25→17:50)
--- NOTE | 2020-11-03 09:39 | NUR ---
SALENA received call from [facility] Intake Unit rep., Radha Hillsian [phone] requesting more information regarding pt.'s wound and discharge plan. SALENA addressed Radha's questions. Radha expressed understanding. SALENA will be available as needed.
[2020-11-03] MEDS: VANCOMYCIN 1 GM in IV D5W 250 ML IV SCH (10:00)
--- NOTE | 2020-11-03 10:14 | NUR ---
MS/RN NOTES CALLED ASHLEY COLINDRES FOR SERIAL EXCISIONAL WOUND DEBREIDEMENT OF RIGHT FOOT WOUNDS CONSENT, NO ANSWER LEAVE MESSAGE TO CALL BACK. WILL FOLLOW UP.
[2020-11-03] MEDS: DAKINS QUARTER STRENGTH (0.125%) 480 ML BOTTLE TOP SCH (13:50)
[2020-11-03] MEDS: MUPIROCIN OINT 2% 22 GM TUBE NS SCH ×2 (13:50→21:11)
[2020-11-03] MEDS: THERAHONEY GEL 1.5 OZ TUBE TP SCH (13:50)
[2020-11-03] MEDS: GLUCERNA 1.2 1,000 ML BOTTLE GT PRN (15:56)
[2020-11-03 16:00] VITALS: BP 160/76
[2020-11-03] MEDS: GABAPENTIN 100 MG CAPSULE GT SCH (17:49)
--- NOTE | 2020-11-03 19:30 | NUR ---
MS/RN OPENING NOTE RECEIVED PATIENT RESTING IN BED. AWAKE, NON-VERBAL AT BASELINE. RESPIRATIONS EVEN AND UNLABORED. CONTINUES ON ROOM AIR WITH NO SIGNS OR SYMPTOMS OF RESPIRATORY DISTRESS NOTED. NO SIGNS OR SYMPTOMS OF PAIN NOTED AT THIS TIME. GONZALES CATHETER PATENT DRAINING CLEAR, YELLOW URINE. IV ACCESS TO LEFT FOREARM PATENT AND INTACT. CONTINUES ON IV FLUIDS. CALL LIGHT WITHIN REACH. ASPIRATION, FALL AND SAFETY PRECAUTIONS MAINTAINED. WILL CONTINUE TO MONITOR.
--- NOTE | 2020-11-03 19:43 | NUR ---
MS/RN CLOSING NOTES PATIENT IS ON BED. NON VERBAL AND OPEN EYES. PATIENT IN ROOM AIR SATURATION 98%. PATIENT IN NO APPARENT RESPIRATORY DISTRESS NOTED. SEEN AND EXAMINED BY MD WITH ORDERS MADE AND CARRIED OUT. ALL DUE MEDICATIONS WAS GIVEN. SAFETY PRECAUTIONS WAS IN PLACED. BED IN LOWEST POSITION AND LOCKED. WILL ENDORSED TO FAMILY AND CONSUMER SCIENCES TEACHER FOR JOSE.
[2020-11-03 20:00] VITALS: BP 141/68
--- NOTE | 2020-11-03 21:42 | NUR ---
MS/TELE/RM PATIENT APPEAR SLEEPING AT THIS TIME, APPEAR COMFORTABLE, NO SIGNS OF DISTRESS NOTED, HOB ELEVATED, G TUBE FEEDING INFUSING AT THIS TIME, WITH NO RESIDUAL NOTE, CALL LIGHT IN REACH, WILL MONITOR.
[2020-11-03] MEDS: MIRTAZAPINE 15 MG TABLET GT SCH (22:02)
[2020-11-03] MEDS: MONTELUKAST SODIUM (10MG) 10 MG TABLET GT SCH (22:02)
[2020-11-03] MEDS: INSULIN REGULAR, HUMAN 100 UNIT/ML 3 ML VIAL SQ PRN (22:54)
--- NOTE | 2020-11-04 06:28 | NUR ---
MS/RN CLOSING NOTE PATIENT CURRENTLY SLEEPING IN BED. NON-VERBAL AT BASELINE. RESPIRATIONS EVEN AND UNLABORED. NO SIGNS OR SYMPTOMS OF PAIN NOTED THIS SHIFT. IV ACCESS TO LEFT FOREARM PATENT AND INTACT. CONTINUES ON IV FLUIDS. CONTINUES ON GLUCERNA TUBE FEED WITH NO RESIDUAL NOTED. VS: BP 141/68 HR 79 RR 16 T 97.9 O2 SAT 99% ROOM AIR. CALL LIGHT WITHIN REACH. ASPIRATION FALL AND SAFETY PRECAUTIONS MAINTAINED. WILL ENDORSE PLAN OF CARE TO ONCOMING SHIFT.
[2020-11-04] MEDS: BLOOD SUGAR DIAGNOSTIC 1 EACH STRIP IN SCH ×4 (06:57→23:04)
[2020-11-04] MEDS: IV NS 0.9% 1,000 ML IV PRN (07:04)
--- NOTE | 2020-11-04 07:41 | NUR ---
MS/RN OPENING NOTES RECEIVED PATIENT ON BED AWAKE NONVERBAL. PATIENT IS ON ROOM AIR SATURATION 98%. PATIENT IN NO APPARENT RESPIRATORY DISTRESS NOTED. NO SIGN AND SYMPTOM OF PAIN NOTED AT THIS TIME. WILL CONTINUE TO MONITOR.
[2020-11-04 08:00] VITALS: BP 146/80
[2020-11-04 08:22] LABS: BASOPHILS % (AUTO) 0.4 % (0.0-2.0); EOSINOPHILS % (AUTO) 5.6 % (0.0-6.0); HEMATOCRIT 28 % (33-45); HEMOGLOBIN 9.4 g/dL (11.5-14.8); LYMPHOCYTES # (AUTO) 1.8 /CMM (0.8-4.8); MEAN CORPUSCULAR HGB CONC 34 g/dl (31.0-36.0); MEAN CORPUSCULAR VOLUME 92 fL (82-100); MONOCYTES # (AUTO) 0.8 /CMM (0.1-1.30); MONOCYTES % (AUTO) 7.3 % (2.0-12.0); NEUTROPHILS # (AUTO) 7.8 /CMM (1.8-8.9); NEUTROPHILS % (AUTO) 70.7 % (43.0-81.0); PLATELET COUNT (AUTO) 255 /CMM (150-450); RED BLOOD CELL COUNT(AUTO) 3.04 MIL/uL (4.0-5.2)
[2020-11-04] MEDS: POLYETHYLENE GLYCOL 3350 17 GM POWD.PACK GT SCH (08:45)
[2020-11-04] MEDS: CHOLECALCIFEROL 1,000 UNIT TABLET (VIT D3) GT SCH (08:45)
[2020-11-04] MEDS: MULTIVIT W/MINERALS 1 TAB TABLET GT SCH (08:45)
[2020-11-04] MEDS: FERROUS SULFATE UDC 300 MG/5 ML UDC GT SCH ×2 (08:46→16:29)
[2020-11-04] MEDS: LEVOTHYROXINE SODIUM 75 MCG TABLET GT SCH (08:46)
[2020-11-04] MEDS: ESCITALOPRAM OXALATE (10 MG) 10 MG TABLET GT SCH (08:46)
[2020-11-04] MEDS: SENNOSIDES 8.6 MG TABLET GT SCH ×2 (08:46→16:33)
[2020-11-04] MEDS: ASCORBIC ACID 500 MG TABLET GT SCH (08:46)
[2020-11-04] MEDS: QUETIAPINE FUMARATE 25 MG TABLET GT SCH ×2 (08:46→16:29)
[2020-11-04] MEDS: BETHANECHOL CHLORIDE (25 MG) 25 MG TABLET PO SCH ×2 (08:46→16:29)
[2020-11-04] MEDS: METOPROLOL TARTRATE 25 MG TABLET GT SCH ×2 (08:47→16:32)
[2020-11-04] MEDS: ZINC SULFATE 220 MG CAPSULE GT SCH (09:03)
[2020-11-04] MEDS: PROSOURCE / PROSTAT (PYXIS) 30 ML UDC GT SCH ×2 (09:03→16:33)
[2020-11-04] MEDS: CEFEPIME 1 GM in IV D5W 50 ML IV SCH ×2 (09:03→22:50)
[2020-11-04] MEDS: MUPIROCIN OINT 2% 22 GM TUBE NS SCH ×2 (09:04→22:54)
[2020-11-04] MEDS: DAKINS QUARTER STRENGTH (0.125%) 480 ML BOTTLE TOP SCH (09:04)
[2020-11-04] MEDS: THERAHONEY GEL 1.5 OZ TUBE TP SCH (09:05)
[2020-11-04 09:27] LABS: CALCIUM, SERUM 8.4 mg/dL (8.5-10.1); CREATININE 0.9 mg/dL (0.6-1.3); POTASSIUM 3.9 mmol/L (3.5-5.1)
[2020-11-04] MEDS ORDERED: VANCOMYCIN 500 MG in IV D5W 100 ML IV SCH (10:00)
[2020-11-04 12:35] LABS: EOSINOPHILS % (MANUAL) 2 % (0-4); LYMPHOCYTES % (MANUAL) 15 % (16-48); MONOCYTES % (MANUAL) 7 % (0-11.0); NEUTROPHILS % (MANUAL) 76 (42-76)
[2020-11-04] MEDS: GLUCERNA 1.2 1,000 ML BOTTLE GT PRN (13:47)
[2020-11-04 16:00] VITALS: BP 156/85
[2020-11-04] MEDS: GABAPENTIN 100 MG CAPSULE GT SCH (18:25)
--- NOTE | 2020-11-04 19:40 | NUR ---
MS/RN CLOSING NOTES PATIENT IS ON BED. NON VERBAL AND OPEN EYES. PATIENT IN ROOM AIR SATURATION 98%. PATIENT IN NO APPARENT RESPIRATORY DISTRESS NOTED. SEEN AND EXAMINED BY MD WITH ORDERS MADE AND CARRIED OUT. ALL DUE MEDICATIONS WAS GIVEN. SAFETY PRECAUTIONS WAS IN PLACED. BED IN LOWEST POSITION AND LOCKED. WILL ENDORSED TO FOOTWEAR SALES ASSOCIATE FOR JOSE.
[2020-11-04 21:18] VITALS: BP 139/93
[2020-11-04] MEDS: MONTELUKAST SODIUM (10MG) 10 MG TABLET GT SCH (22:50)
[2020-11-04] MEDS: MIRTAZAPINE 15 MG TABLET GT SCH (22:51)
[2020-11-04] MEDS: INSULIN REGULAR, HUMAN 100 UNIT/ML 3 ML VIAL SQ PRN (23:05)
[2020-11-05] MEDS: BLOOD SUGAR DIAGNOSTIC 1 EACH STRIP IN SCH ×4 (06:47→21:24)
[2020-11-05] MEDS: INSULIN REGULAR, HUMAN 100 UNIT/ML 3 ML VIAL SQ PRN ×3 (06:49→21:21)
[2020-11-05 09:01] LABS: BASOPHILS # (AUTO) 0.1 /CMM (0.0-0.2); BASOPHILS % (AUTO) 0.5 % (0.0-2.0); EOSINOPHILS % (AUTO) 3.3 % (0.0-6.0); HEMATOCRIT 30 % (33-45); HEMOGLOBIN 10.2 g/dL (11.5-14.8); LYMPHOCYTES # (AUTO) 1.3 /CMM (0.8-4.8); MEAN CORPUSCULAR HGB CONC 34 g/dl (31.0-36.0); MEAN CORPUSCULAR VOLUME 92 fL (82-100); MONOCYTES # (AUTO) 1.1 /CMM (0.1-1.30); MONOCYTES % (AUTO) 7.6 % (2.0-12.0); NEUTROPHILS # (AUTO) 11.4 /CMM (1.8-8.9); NEUTROPHILS % (AUTO) 79.6 % (43.0-81.0); PLATELET COUNT (AUTO) 270 /CMM (150-450); RED BLOOD CELL COUNT(AUTO) 3.27 MIL/uL (4.0-5.2); WHITE BLOOD COUNT (AUTO) 14.3 K/uL (4.3-11.0)
[2020-11-05 09:23] LABS: CALCIUM, SERUM 8.4 mg/dL (8.5-10.1); CREATININE 0.9 mg/dL (0.6-1.3); POTASSIUM 3.7 mmol/L (3.5-5.1)
[2020-11-05] MEDS: BETHANECHOL CHLORIDE (25 MG) 25 MG TABLET PO SCH ×2 (09:45→16:11)
[2020-11-05] MEDS: CHOLECALCIFEROL 1,000 UNIT TABLET (VIT D3) GT SCH (09:45)
[2020-11-05] MEDS: SENNOSIDES 8.6 MG TABLET GT SCH ×2 (09:45→16:11)
[2020-11-05] MEDS: POLYETHYLENE GLYCOL 3350 17 GM POWD.PACK GT SCH (09:45)
[2020-11-05] MEDS: FERROUS SULFATE UDC 300 MG/5 ML UDC GT SCH ×2 (09:45→16:11)
[2020-11-05] MEDS: QUETIAPINE FUMARATE 25 MG TABLET GT SCH ×2 (09:46→16:11)
[2020-11-05] MEDS: MULTIVIT W/MINERALS 1 TAB TABLET GT SCH (09:46)
[2020-11-05] MEDS: LEVOTHYROXINE SODIUM 75 MCG TABLET GT SCH (09:46)
[2020-11-05] MEDS: ESCITALOPRAM OXALATE (10 MG) 10 MG TABLET GT SCH (09:46)
[2020-11-05] MEDS: ZINC SULFATE 220 MG CAPSULE GT SCH (09:46)
[2020-11-05] MEDS: MUPIROCIN OINT 2% 22 GM TUBE NS SCH ×2 (09:47→20:19)
[2020-11-05] MEDS: DAKINS QUARTER STRENGTH (0.125%) 480 ML BOTTLE TOP SCH (09:47)
[2020-11-05] MEDS: THERAHONEY GEL 1.5 OZ TUBE TP SCH (09:47)
[2020-11-05] MEDS: PROSOURCE / PROSTAT (PYXIS) 30 ML UDC GT SCH ×2 (09:50→16:13)
[2020-11-05] MEDS: ASCORBIC ACID 500 MG TABLET GT SCH (09:51)
[2020-11-05] MEDS: METOPROLOL TARTRATE 25 MG TABLET GT SCH ×2 (09:51→16:12)
[2020-11-05] MEDS: CEFEPIME 1 GM in IV D5W 50 ML IV SCH ×2 (09:52→20:17)
[2020-11-05] MEDS ORDERED: VANCOMYCIN 500 MG in IV D5W 100 ML IV SCH (10:00)
[2020-11-05 10:38] VITALS: BP 137/55
[2020-11-05 12:59] LABS: EOSINOPHILS % (MANUAL) 7 % (0-4); LYMPHOCYTES % (MANUAL) 10 % (16-48); MONOCYTES % (MANUAL) 2 % (0-11.0); MYELOCYTES % 2 % (0-0); NEUTROPHILS % (MANUAL) 79 (42-76)
--- NOTE | 2020-11-05 15:00 | NUR ---
m/s headstart teacher: notes tx done to leila hips wound. turned and repositioned. kept clean and dry. hob elevated. will continue to monitor.
[2020-11-05] MEDS: GLUCERNA 1.2 1,000 ML BOTTLE GT PRN (15:46)
[2020-11-05 16:58] VITALS: BP 142/78
[2020-11-05] MEDS: GABAPENTIN 100 MG CAPSULE GT SCH (17:29)
--- NOTE | 2020-11-05 19:00 | NUR ---
m/s hog dropper: notes bedside report given to joshua (rn) for continuity of care.
--- NOTE | 2020-11-05 19:27 | NUR ---
RN NOTES PATIENT IS IN BED NON VERBAL OPEN EYES WHEN NAMED CALLED. PATIENT IS ON ROOM AIR TOLERATING WELL. NO RESPIRATORY DISTRESS NOTED AT THIS TIME. NO PAIN NOTED AT THIS TIME.SAFETY PRECAUTIONS WAS IN PLACED.BED IN LOWEST POSITION AND LOCKED. WILL CONTINUE TO MONITOR.
[2020-11-05 20:00] VITALS: BP 144/73
[2020-11-05] MEDS: MIRTAZAPINE 15 MG TABLET GT SCH (21:08)
[2020-11-05] MEDS: MONTELUKAST SODIUM (10MG) 10 MG TABLET GT SCH (21:08)
[2020-11-05 21:38] VITALS: BP 144/73
--- NOTE | 2020-11-05 22:00 | NUR ---
RN NOTES BLOOD SUGAR CHECKED INSULIN COVERAGE PROVIDED WILL CONTINUE TO MONITOR.
--- NOTE | 2020-11-06 04:25 | NUR ---
RN NOTES WOUND CARE PROVIDED TOLERATED WELL.WILL CONTINUE TO MONITOR.
[2020-11-06] MEDS: BLOOD SUGAR DIAGNOSTIC 1 EACH STRIP IN SCH ×4 (06:09→22:16)
--- NOTE | 2020-11-06 06:10 | NUR ---
RN NOTES BLOOD SUGAR CHECKED NO COVERAGE NEEDED WILL CONTINUE TO MONITOR.
--- NOTE | 2020-11-06 06:37 | NUR ---
RN NOTES PATIENT IS IN BED NON VERBAL OPEN EYES WHEN NAMED CALLED. PATIENT IS ON ROOM AIR TOLERATING WELL. NO RESPIRATORY DISTRESS NOTED AT THIS TIME. NO PAIN NOTED AT THIS TIME.SAFETY PRECAUTIONS WAS IN PLACED.BED IN LOWEST POSITION AND LOCKED. HOB ELEVATED. TOTAL URINE OUTPUT 1150ML.ENDORSE CARE TO DAY SHIFT NURSE.
[2020-11-06 07:15] LABS: BASOPHILS % (AUTO) 0.4 % (0.0-2.0); EOSINOPHILS % (AUTO) 7.8 % (0.0-6.0); HEMATOCRIT 28 % (33-45); HEMOGLOBIN 9.5 g/dL (11.5-14.8); LYMPHOCYTES # (AUTO) 1.6 /CMM (0.8-4.8); LYMPHOCYTES % (AUTO) 15.1 % (20.0-44.0); MEAN CORPUSCULAR HGB CONC 34 g/dl (31.0-36.0); MEAN CORPUSCULAR VOLUME 92 fL (82-100); MONOCYTES % (AUTO) 9.7 % (2.0-12.0); NEUTROPHILS # (AUTO) 7.2 /CMM (1.8-8.9); PLATELET COUNT (AUTO) 267 /CMM (150-450); RED BLOOD CELL COUNT(AUTO) 2.99 MIL/uL (4.0-5.2); WHITE BLOOD COUNT (AUTO) 10.7 K/uL (4.3-11.0)
--- NOTE | 2020-11-06 07:15 | NUR ---
MS RN OPENING NOTES PATIENT IN BED. NO SOB NOTED. IN NO APPARENT DISTRESS. IV ACCESS ON L WRIST #22 G, RJ TRIPLE LUMEN. ON GONZALES CATHETER, INTACT. GLUCERNA RUNNING @ 50 ML/HR. SAFETY MEASURES MAINTAINED. BED IN LOWEST POSITION, BRAKES LOCKED. SIDE RAILS UP X2. CALL LIGHT WITHIN REACH. WILL CONTINUE PLAN OF CARE.
[2020-11-06 08:00] VITALS: BP 166/86
[2020-11-06 08:03] LABS: CALCIUM, SERUM 8.5 mg/dL (8.5-10.1); CREATININE 0.9 mg/dL (0.6-1.3); POTASSIUM 4.3 mmol/L (3.5-5.1)
[2020-11-06] MEDS: SENNOSIDES 8.6 MG TABLET GT SCH ×2 (08:24→16:09)
[2020-11-06] MEDS: LEVOTHYROXINE SODIUM 75 MCG TABLET GT SCH (08:24)
[2020-11-06] MEDS: FERROUS SULFATE UDC 300 MG/5 ML UDC GT SCH ×2 (08:24→16:09)
[2020-11-06] MEDS: BETHANECHOL CHLORIDE (25 MG) 25 MG TABLET PO SCH ×2 (08:24→16:10)
[2020-11-06] MEDS: MULTIVIT W/MINERALS 1 TAB TABLET GT SCH (08:24)
[2020-11-06] MEDS: CHOLECALCIFEROL 1,000 UNIT TABLET (VIT D3) GT SCH (08:24)
[2020-11-06] MEDS: ZINC SULFATE 220 MG CAPSULE GT SCH (08:25)
[2020-11-06] MEDS: QUETIAPINE FUMARATE 25 MG TABLET GT SCH ×2 (08:25→16:10)
[2020-11-06] MEDS: METOPROLOL TARTRATE 25 MG TABLET GT SCH ×2 (08:25→16:09)
[2020-11-06] MEDS: ASCORBIC ACID 500 MG TABLET GT SCH (08:25)
[2020-11-06] MEDS: ESCITALOPRAM OXALATE (10 MG) 10 MG TABLET GT SCH (08:25)
[2020-11-06] MEDS: POLYETHYLENE GLYCOL 3350 17 GM POWD.PACK GT SCH (08:26)
[2020-11-06] MEDS: VANCOMYCIN 500 MG in IV D5W 100 ML IV SCH (08:29)
[2020-11-06] MEDS: THERAHONEY GEL 1.5 OZ TUBE TP SCH (08:29)
[2020-11-06] MEDS: DAKINS QUARTER STRENGTH (0.125%) 480 ML BOTTLE TOP SCH (08:30)
[2020-11-06] MEDS: MUPIROCIN OINT 2% 22 GM TUBE NS SCH ×2 (08:52→22:18)
[2020-11-06] MEDS: PROSOURCE / PROSTAT (PYXIS) 30 ML UDC GT SCH ×2 (08:52→16:10)
[2020-11-06] MEDS: GLUCERNA 1.2 1,000 ML BOTTLE GT PRN (08:52)
[2020-11-06] MEDS: CEFEPIME 1 GM in IV D5W 50 ML IV SCH ×2 (10:15→22:23)
[2020-11-06] MEDS: INSULIN REGULAR, HUMAN 100 UNIT/ML 3 ML VIAL SQ PRN (12:22)
[2020-11-06 16:00] VITALS: BP 163/82
[2020-11-06] MEDS: GABAPENTIN 100 MG CAPSULE GT SCH (17:03)
--- NOTE | 2020-11-06 18:31 | NUR ---
MS RN CLOSING NOTES PATIENT IN BED. NO S/S OF RESPIRATORY DISTRESS. IV ACCESS ON L WRIST #22 G, RJ TRIPLE LUMEN. ON GONZALES CATHETER, INTACT, DRAINING YELLOW URINE. GLUCERNA RUNNING @ 50 ML/HR. ROUTINE MEDS WERE GIVEN ORDERED. SAFETY MEASURES MAINTAINED. BED IN LOWEST POSITION, BRAKES LOCKED. SIDE RAILS UP X2. CALL LIGHT WITHIN REACH. WILL ENDORSE TO LIBRARY MEDIA SPECIALIST FOR JOSE.
[2020-11-06 20:00] VITALS: BP 140/65
--- NOTE | 2020-11-06 20:00 | NUR ---
NURSES OPENING NOTES: SEEN PATIENT IN BED, ASLEEP, EYES CLOSED, NO COMPLAINS OF PAIN, NO FACIAL GRIMACE NOTED THIS TIME. PATIENT IS ALERT AND ORIENTED X1, OPENS EYES ONLY. WITH IVF ON LEFT WRIST G#22, WITH TRIPLE LUMEN PICC LINE ON THE RIGHT JUGULAR AREA. WILL ADMINISTER ORDERED MEDICATIONS. SAFETY AND FALL PRECAUTIONS OBSERVED. BED ALARM KEPT ON. WILL CONTINUE TO MONITOR PATIENT.
[2020-11-06] MEDS: MIRTAZAPINE 15 MG TABLET GT SCH (22:16)
[2020-11-06] MEDS: MONTELUKAST SODIUM (10MG) 10 MG TABLET GT SCH (22:16)
[2020-11-07] MEDS: VANCOMYCIN 500 MG in IV D5W 100 ML IV SCH ×2 (02:03→20:10)
[2020-11-07] MEDS: GLUCERNA 1.2 1,000 ML BOTTLE GT PRN (05:48)
[2020-11-07] MEDS: INSULIN REGULAR, HUMAN 100 UNIT/ML 3 ML VIAL SQ PRN ×4 (06:14→22:33)
[2020-11-07 06:52] LABS: BASOPHILS # (AUTO) 0.1 /CMM (0.0-0.2); BASOPHILS % (AUTO) 0.7 % (0.0-2.0); EOSINOPHILS % (AUTO) 6.3 % (0.0-6.0); HEMATOCRIT 28 % (33-45); HEMOGLOBIN 9.5 g/dL (11.5-14.8); LYMPHOCYTES # (AUTO) 1.6 /CMM (0.8-4.8); LYMPHOCYTES % (AUTO) 15.3 % (20.0-44.0); MEAN CORPUSCULAR HGB CONC 34 g/dl (31.0-36.0); MEAN CORPUSCULAR VOLUME 93 fL (82-100); MONOCYTES # (AUTO) 1.1 /CMM (0.1-1.30); MONOCYTES % (AUTO) 10.2 % (2.0-12.0); NEUTROPHILS # (AUTO) 7.3 /CMM (1.8-8.9); NEUTROPHILS % (AUTO) 67.5 % (43.0-81.0); PLATELET COUNT (AUTO) 319 /CMM (150-450); RED BLOOD CELL COUNT(AUTO) 2.99 MIL/uL (4.0-5.2); WHITE BLOOD COUNT (AUTO) 10.7 K/uL (4.3-11.0)
--- NOTE | 2020-11-07 06:59 | NUR ---
CLOSING NOTES: PATIENT IN THE ROOM, NON VERBAL HOWEVER OPENS HER EYES ON SOME OCCASIONS. JUGULAR PICC LINE IN PLACE. IV ON LEFT HAND G#[address] ADMINISTERED ORDERED MEDICATIONS. BLOOD GLUCOSE LEVELS CHECKED.G TUBE FEEDING ON GOING GLUCERNA AT 50ML/HR. TOLERATED WELL. SAFETY AND FALL PRECAUTIONS OBSERVED. BED ALARM KEPT ON. WILL ENDORSE PATIENT'S CARE TO DAY SHIFT NURSE.
--- NOTE | 2020-11-07 07:35 | NUR ---
MS OPENING NOTES: RECEIVED PT ASLEEP IN BED, AWAKENS EASILY. HOB ELEVATED. PT IS NON VERBAL AND OPEN EYES TO TACTILE STIMULI. NO FACIAL GRIMACE NOTED AT THIS TIME. ON ROOM AIR, BREATHING EVEN AND UNLABORED. IV SL ON LEFT WRIST G#22 AND TRIPLE LUMEN PICC LINE ON THE RIGHT JUGULAR AREA BOTH INTACT, PATENT AND FLUSHES WELL. SAFETY AND FALL PRECAUTIONS MAINTAINED: BED IN LOWEST LOCKED POSITION WITH SR UP X2. BED ALARM KEPT ON AND CALL LIGHT W/IN REACH. WILL CONTINUE TO MONITOR PATIENT.
[2020-11-07] MEDS: BLOOD SUGAR DIAGNOSTIC 1 EACH STRIP IN SCH ×4 (07:39→22:05)
[2020-11-07 07:51] LABS: CALCIUM, SERUM 8.9 mg/dL (8.5-10.1); CREATININE 0.8 mg/dL (0.6-1.3); POTASSIUM 4.5 mmol/L (3.5-5.1)
[2020-11-07 08:00] VITALS: BP 163/95
[2020-11-07] MEDS: FERROUS SULFATE UDC 300 MG/5 ML UDC GT SCH ×2 (08:52→17:02)
[2020-11-07] MEDS: BETHANECHOL CHLORIDE (25 MG) 25 MG TABLET PO SCH ×2 (08:53→17:03)
[2020-11-07] MEDS: CHOLECALCIFEROL 1,000 UNIT TABLET (VIT D3) GT SCH (08:53)
[2020-11-07] MEDS: SENNOSIDES 8.6 MG TABLET GT SCH ×2 (08:53→17:03)
[2020-11-07] MEDS: POLYETHYLENE GLYCOL 3350 17 GM POWD.PACK GT SCH (08:53)
[2020-11-07] MEDS: ESCITALOPRAM OXALATE (10 MG) 10 MG TABLET GT SCH (08:54)
[2020-11-07] MEDS: ASCORBIC ACID 500 MG TABLET GT SCH (08:55)
[2020-11-07] MEDS: ZINC SULFATE 220 MG CAPSULE GT SCH (08:55)
[2020-11-07] MEDS: MULTIVIT W/MINERALS 1 TAB TABLET GT SCH (08:55)
[2020-11-07] MEDS: LEVOTHYROXINE SODIUM 75 MCG TABLET GT SCH (08:55)
[2020-11-07] MEDS: QUETIAPINE FUMARATE 25 MG TABLET GT SCH ×2 (08:55→17:03)
[2020-11-07] MEDS: METOPROLOL TARTRATE 25 MG TABLET GT SCH ×2 (08:55→17:03)
[2020-11-07] MEDS: PROSOURCE / PROSTAT (PYXIS) 30 ML UDC GT SCH ×2 (08:56→17:04)
[2020-11-07] MEDS: THERAHONEY GEL 1.5 OZ TUBE TP SCH (08:57)
[2020-11-07] MEDS: DAKINS QUARTER STRENGTH (0.125%) 480 ML BOTTLE TOP SCH (08:57)
[2020-11-07] MEDS: MUPIROCIN OINT 2% 22 GM TUBE NS SCH ×2 (08:57→21:50)
[2020-11-07] MEDS: CEFEPIME 1 GM in IV D5W 50 ML IV SCH ×2 (09:03→21:49)
[2020-11-07] MEDS ORDERED: IV NS 0.9% 1,000 ML IV ONE (10:00)
[2020-11-07] MEDS ORDERED: CLONIDINE HCL 0.1 MG TABLET PO PRN (10:00)
[2020-11-07 10:04] LABS: BAND % (MANUAL) 23 % (0.0-5.0); EOSINOPHILS % (MANUAL) 5 % (0-4); LYMPHOCYTES % (MANUAL) 18 % (16-48); MONOCYTES % (MANUAL) 11 % (0-11.0); NEUTROPHILS % (MANUAL) 43 (42-76)
[2020-11-07 16:00] VITALS: BP 150/75
[2020-11-07] MEDS: GABAPENTIN 100 MG CAPSULE GT SCH (17:03)
--- NOTE | 2020-11-07 18:46 | NUR ---
MS RN CLOSING NOTES: PT IS AWAKE IN BED WITH HOB ELVATED AT THIS TIME. PT IS VERBAL ON AND OFF DURING SHIFT BUT IS INCOMPREHENSIBLE. ON ROOM AIR, BREATHING IS WNL AND IS EVEN AND UNLABORED DURING THIS TIME. IV ACCESS ON LEFT WRIST G#22 AND TRIPLE LUMEN PICC LINE ON RIGHT JUGULAR AREA ARE BOTH INTACT, PATENT AND FLUSHING WELL AT THIS TIME. IVF OF NS @ 50 ML/HR RUNNING ORDERED. ALL NEEDS AND CARE PROVIDED WELL DURING SHIFT. SAFETY MEASURES MAINTAINED: BED LOCKED AND IS IN LOWEST POSITION, UPPER SIDE RAILS X2, BED ALARM ON, CALL LIGHT PLACED WITHIN REACH. WILL ENDORSE TO CAMP PROGRAM DIRECTOR NURSE FOR CONTINUITY OF CARE.
--- NOTE | 2020-11-07 19:52 | NUR ---
RN OPENING NOTES: RECEIVED AT BEDSIDE. PT ASLEEP IN BED, AWAKENS EASILY. CALM, COOPERATIVE. HOB ELEVATED. PT IS NON VERBAL AND OPEN EYES TO TACTILE STIMULI. NO FACIAL GRIMACE NOTED AT THIS TIME. NO SIGNS OF DISTRESS, C/O OF PAIN AT THIS TIME. ON ROOM AIR, BREATHING EVEN AND UNLABORED. IV SL ON LEFT WRIST G#22 AND TRIPLE LUMEN PICC LINE ON THE RIGHT JUGULAR AREA BOTH INTACT, PATENT AND FLUSHES WELL. G TUBE SITE CLEAN, DRY, INTACT. RUNNING GLUCERNA 1.2 @55 ML/ HR. MINIMAL RESIDUE NOTED. SAFETY AND FALL PRECAUTIONS MAINTAINED: BED IN LOWEST LOCKED POSITION WITH SR UP X2. BED ALARM KEPT ON AND CALL LIGHT W/IN REACH. WILL INITIATE D/C PLANNING FOR TOMORROW. WILL CONTINUE TO MONITOR PATIENT. WILL CONTINUE PLAN OF CARE.
[2020-11-07 20:00] VITALS: BP 109/70
[2020-11-07] MEDS: MONTELUKAST SODIUM (10MG) 10 MG TABLET GT SCH (22:11)
[2020-11-07] MEDS: MIRTAZAPINE 15 MG TABLET GT SCH (22:11)
[2020-11-08] MEDS: GLUCERNA 1.2 1,000 ML BOTTLE GT PRN (05:17)
[2020-11-08] MEDS: BLOOD SUGAR DIAGNOSTIC 1 EACH STRIP IN SCH ×2 (06:42→12:16)
--- NOTE | 2020-11-08 07:30 | NUR ---
MS OPENING NOTES: PT RECEIVED ASLEEP IN BED, AWAKENS EASILY. HOB IS ELEVATED. PT IS ALERT, OPENS EYES SPONTANEOUSLY, RESPONSIVE TO TACTILE STIMULI. PT IS VERBAL ON AND OFF, BUT MAKES SOUNDS THAT ARE INCOMPREHENSIBLE. NO FACIAL GRIMACING NOTED AT THIS TIME. PT IS ON ROOM AIR, WITH NO S/SX OF SOB, PT'S BREATHING IS EVEN AND UNLABORED AT THIS TIME. IVF OF NS ON LEFT WRIST G#22 RUNNING AT 50 ML/HR. TRIPLE LUMEN PICC LINE ON RIGHT JUGULAR ARE INTACT, PATENT AND FLUSHING WELL. G-TUBE IN PLACE, INTACT AND RUNNING GLUCERNA 1.2 AT 50 ML/HR, TOLERATING WELL. ASPIRATION PRECAUTIONS MAINTAINED. SAFETY AND FALL PRECAUTIONS MAINTAINED: BED IN LOWEST LOCKED POSITION WITH SR UP X2. BED ALARM KEPT ON AND CALL LIGHT W/IN REACH. WILL CONTINUE TO MONITOR PATIENT.
--- NOTE | 2020-11-08 07:32 | NUR ---
RN CLOSING NOTES: PT LAYING IN BED. PT ASLEEP IN BED, AWAKENS EASILY. CALM, COOPERATIVE. HOB ELEVATED. PT IS NON VERBAL AND OPEN EYES TO TACTILE STIMULI. NO FACIAL GRIMACE NOTED AT THIS TIME. NO SIGNS OF DISTRESS, C/O OF PAIN AT THIS TIME. ON ROOM AIR, BREATHING EVEN AND UNLABORED. IV SL ON LEFT WRIST G#22 AND TRIPLE LUMEN PICC LINE ON THE RIGHT JUGULAR AREA BOTH INTACT, PATENT AND FLUSHES WELL. G TUBE SITE CLEAN, DRY, INTACT. RUNNING GLUCERNA 1.2 @55 ML/ HR. MINIMAL RESIDUE NOTED. SAFETY AND FALL PRECAUTIONS MAINTAINED: BED IN LOWEST LOCKED POSITION WITH SR UP X2. BED ALARM KEPT ON AND CALL LIGHT W/IN REACH. PERFORMED WOUND CARE LAST NIGHT. TOOK PICTURES OF WOUNDS FOR REASSESSMENTS. WILL ENDORSE TO UPCOMING SHIFT. WILL CONTINUE TO MONITOR PATIENT. WILL CONTINUE PLAN OF CARE.
[2020-11-08 07:40] LABS: CALCIUM, SERUM 9.2 mg/dL (8.5-10.1); CREATININE 0.9 mg/dL (0.6-1.3); POTASSIUM 3.8 mmol/L (3.5-5.1)
[2020-11-08 07:56] LABS: BASOPHILS # (AUTO) 0.1 /CMM (0.0-0.2); BASOPHILS % (AUTO) 0.7 % (0.0-2.0); EOSINOPHILS % (AUTO) 5.5 % (0.0-6.0); HEMATOCRIT 28 % (33-45); HEMOGLOBIN 9.7 g/dL (11.5-14.8); LYMPHOCYTES # (AUTO) 1.8 /CMM (0.8-4.8); LYMPHOCYTES % (AUTO) 17.1 % (20.0-44.0); MEAN CORPUSCULAR HGB CONC 34 g/dl (31.0-36.0); MEAN CORPUSCULAR VOLUME 92 fL (82-100); MONOCYTES % (AUTO) 9.1 % (2.0-12.0); NEUTROPHILS # (AUTO) 7.1 /CMM (1.8-8.9); NEUTROPHILS % (AUTO) 67.6 % (43.0-81.0); PLATELET COUNT (AUTO) 334 /CMM (150-450); RED BLOOD CELL COUNT(AUTO) 3.09 MIL/uL (4.0-5.2); WHITE BLOOD COUNT (AUTO) 10.5 K/uL (4.3-11.0)
[2020-11-08] MEDS: METOPROLOL TARTRATE 25 MG TABLET GT SCH (09:08)
[2020-11-08] MEDS: ESCITALOPRAM OXALATE (10 MG) 10 MG TABLET GT SCH (09:08)
[2020-11-08] MEDS: FERROUS SULFATE UDC 300 MG/5 ML UDC GT SCH (09:08)
[2020-11-08] MEDS: SENNOSIDES 8.6 MG TABLET GT SCH (09:09)
[2020-11-08] MEDS: LEVOTHYROXINE SODIUM 75 MCG TABLET GT SCH (09:09)
[2020-11-08] MEDS: ASCORBIC ACID 500 MG TABLET GT SCH (09:09)
[2020-11-08] MEDS: ZINC SULFATE 220 MG CAPSULE GT SCH (09:09)
[2020-11-08] MEDS: CHOLECALCIFEROL 1,000 UNIT TABLET (VIT D3) GT SCH (09:09)
[2020-11-08] MEDS: BETHANECHOL CHLORIDE (25 MG) 25 MG TABLET PO SCH (09:09)
[2020-11-08] MEDS: PROSOURCE / PROSTAT (PYXIS) 30 ML UDC GT SCH (09:09)
[2020-11-08] MEDS: QUETIAPINE FUMARATE 25 MG TABLET GT SCH (09:09)
[2020-11-08] MEDS: MULTIVIT W/MINERALS 1 TAB TABLET GT SCH (09:09)
[2020-11-08] MEDS: POLYETHYLENE GLYCOL 3350 17 GM POWD.PACK GT SCH (09:09)
[2020-11-08] MEDS: THERAHONEY GEL 1.5 OZ TUBE TP SCH (09:10)
[2020-11-08] MEDS: MUPIROCIN OINT 2% 22 GM TUBE NS SCH (09:10)
[2020-11-08] MEDS: DAKINS QUARTER STRENGTH (0.125%) 480 ML BOTTLE TOP SCH (09:11)
[2020-11-08] MEDS: CEFEPIME 1 GM in IV D5W 50 ML IV SCH (09:50)
[2020-11-08] MEDS ORDERED: CEFE1PIG3 IV (11:26)
[2020-11-08] MEDS ORDERED: VANC500P5 IV (11:26)
[2020-11-08] MEDS: INSULIN REGULAR, HUMAN 100 UNIT/ML 3 ML VIAL SQ PRN (12:22)
[2020-11-08] MEDS: VANCOMYCIN 500 MG in IV D5W 100 ML IV SCH (13:08)
[2020-11-08 13:56] LABS: BAND % (MANUAL) 6 % (0.0-5.0); EOSINOPHILS % (MANUAL) 2 % (0-4); LYMPHOCYTES % (MANUAL) 18 % (16-48); MONOCYTES % (MANUAL) 3 % (0-11.0); MYELOCYTES % 4 % (0-0); NEUTROPHILS % (MANUAL) 67 (42-76)
[2020-11-08 15:55] VITALS: BP 125/79
--- NOTE | 2020-11-08 16:05 | NUR ---
RN DISCHARGED NOTES PT DISCHARGED TO [facility] IN STABLE CONDITION. PT IS ALERT TO SELF ONLY. NO BELONGINGS NOTED. VITAL SIGNS TAKEN, STABLE AND RECORDED. PHOTOS OF SKIN ISSUES TAKEN AND FILED IN HER CHART. IV ACCESS ON LEFT WRIST REMOVED WITH NO ACTIVE BLEEDING NOTED. PRESSURE DRY DRESSING APPLIED. RIGHT JUGULAR TRIPLE LUMEN PICC LINE KEPT IN PLACE BECAUSE PATIENT WILL CONTINUE TO RECEIVE IV ANTIBIOTICS FOR SEVEN DAYS ORDERED. GONZALES KEPT IN PLACE. CALLED AND REPORT GIVEN MARLEY GARCIA AT [facility], VERBALIZED UNDERSTANDING. CALLED PT'S SISTER ADRIENNE AND INFORMED OF PT'S DISCHARGE TO [facility]. PT LEFT UNIT AT 1555 VIA GURNEY ACCOMPANIED BY 3 EMT'S FROM [facility]. CHARGE NURSE AWARE OF DISCHARGE.
== END 2020-11-08 16:00 | DRG 853 ==
LOC: ER 21:13 → TRANSITION 10-31 00:42 → ICUOV2 10-31 16:46 → TELE2 10-31 19:22 → MEDSG2 11-02 11:17 → MED 11-02 13:43
PROVIDERS: ADMIT Family Medicine; ATTEND Nurse Practitioner Acute Care
PROC: 02HV33Z Insertion of Infusion Device into Superior Vena Cava, Percutaneous Approach (ICD-10-PCS; 2020-10-30)
PROC: B548ZZA Ultrasonography of Superior Vena Cava, Guidance (ICD-10-PCS; 2020-10-30)
PROC: 30233N1 Transfusion of Nonautologous Red Blood Cells into Peripheral Vein, Percutaneous Approach (ICD-10-PCS; 2020-10-31)
PROC: 0DB68ZX Excision of Stomach, Via Natural or Artificial Opening Endoscopic, Diagnostic (ICD-10-PCS; principal; 2020-11-01)
PROC: 0JBQ0ZZ Excision of Right Foot Subcutaneous Tissue and Fascia, Open Approach (ICD-10-PCS; 2020-11-03)
PROC: 0KBP0ZZ Excision of Left Hip Muscle, Open Approach (ICD-10-PCS; 2020-11-04)
PROC: 0KBN0ZZ Excision of Right Hip Muscle, Open Approach (ICD-10-PCS; 2020-11-04)
DX: A41.9 Sepsis, unspecified organism (principal); L89.154 Pressure ulcer of sacral region, stage 4; L89.224 Pressure ulcer of left hip, stage 4; L89.214 Pressure ulcer of right hip, stage 4; E43 Unspecified severe protein-calorie malnutrition; G92 Toxic encephalopathy; J15.9 Unspecified bacterial pneumonia; R53.2 Functional quadriplegia; N17.0 Acute kidney failure with tubular necrosis; N39.0 Urinary tract infection, site not specified; E87.1 Hypo-osmolality and hyponatremia; E87.2 Acidosis; D62 Acute posthemorrhagic anemia; D68.69 Other thrombophilia; L97.418 Non-pressure chronic ulcer of right heel and midfoot with other specified severity; L97.518 Non-pressure chronic ulcer of other part of right foot with other specified severity; D53.9 Nutritional anemia, unspecified; E03.9 Hypothyroidism, unspecified; F32.9 Major depressive disorder, single episode, unspecified; E88.09 Other disorders of plasma-protein metabolism, not elsewhere classified; R62.7 Adult failure to thrive; Z68.20 Body mass index [BMI] 20.0-20.9, adult; Z20.822 Contact with and (suspected) exposure to COVID-19; R13.10 Dysphagia, unspecified; Z93.1 Gastrostomy status; Z86.16 Personal history of COVID-19; Z87.440 Personal history of urinary (tract) infections; F03.90 Unspecified dementia, unspecified severity, without behavioral disturbance, psychotic disturbance, mood disturbance, and anxiety; E86.0 Dehydration; E86.1 Hypovolemia; I25.2 Old myocardial infarction; M24.562 Contracture, left knee; M24.561 Contracture, right knee; E11.40 Type 2 diabetes mellitus with diabetic neuropathy, unspecified; E11.51 Type 2 diabetes mellitus with diabetic peripheral angiopathy without gangrene; K29.70 Gastritis, unspecified, without bleeding; N13.9 Obstructive and reflux uropathy, unspecified; E11.621 Type 2 diabetes mellitus with foot ulcer; Z86.718 Personal history of other venous thrombosis and embolism; B95.62 Methicillin resistant Staphylococcus aureus infection as the cause of diseases classified elsewhere; I10 Essential (primary) hypertension
CPT/HCPCS: 36415; 71045-TC; 80048-TC; 80053-TC; 80061-TC; 80076-TC; 80202-TC; 81001; 82272-TC; 82550-TC; 82962-TC; 83605-TC; 83735-TC; 83970; 84100-TC; 84155; 84165; 84484-TC; 85025-TC; 85027-TC; 85730-TC; 86850-TC; 87040-TC; 87070-TC; 87081-TC; 87086-TC; 87186-TC; 88305-TC; 88313-TC; 88342; A6253; A6403; C9803; G0378; J0692; J1815; J2405; J3370; J3475; J3480; J3490; J7030; J7040; J7050; J7060; P9016-BL; U0003

== ENCOUNTER 2021-04-05 10:00 | Inpatient (IN) | payer MEDICARE, OTHER ==
[~2021-04-05] VITALS: Ht 167.6 cm; Wt 42.6 kg
[~2021-04-05 10:00] MED LIST: ACET-868 GT; AMIN30LI2 GT; APIX5TAB GT; ARGI1POW13 GT; ASCO-352 GT; BETH50TA2 GT; BISA10SU11 RC; CEFE1PIG3 IV; CHOL100062 GT; CLOT15CR5 TP; COLL30OI TP; DOCU50LI GT; ESCI5TAB GT; FERR300L GT; GABA-532 GT; GEL100GE TD; INSU100V39 SQ; LACT10SO3 GT; LEVO75TA7 GT; METO25TA20 GT; MIRT-90 GT; MONT10TA22 GT; MULT-447 GT; NUT.237L30 GT; POLY17PO4 GT; QUET25TA GT; SENN-261 GT; SODI480S2 TD; VANC500P5 IV; XEROFORM TD; ZINC1CAP2 GT
--- NOTE | 2021-04-05 10:00 | NUR ---
PT ANA FROM [facility] C/O COFFEE GROUND VOMITING AND LOW BP. PT IS AAOX0, NOT IN RESPIRATORY DISTRESS, HOOKED TO UTILIZATION REVIEWER, KEPT RESTED AND COMFORTABLE. WILL CONTINUE TO MONITOR.
--- NOTE | 2021-04-05 10:12 | NUR ---
AT BEDSIDE FOR EVAL.
--- NOTE | 2021-04-05 10:20 | NUR ---
IV LINE ESTABLISHED BLOOD DRAWN AND SENT TO LAB.
[2021-04-05] MEDS ORDERED: ONDANSETRON HCL/PF 4 MG/2 ML VIAL ONE (10:28)
[2021-04-05] MEDS ORDERED: PANTOPRAZOLE 40 MG VIAL ONE (10:28)
[2021-04-05] MEDS ORDERED: OCTREOTIDE 100 MCG/ML VIAL ONE (10:29)
[2021-04-05] MEDS ORDERED: OCTREOTIDE 50 MCG/ML AMPUL IV ONE (10:30)
[2021-04-05] MEDS ORDERED: ONDANSETRON HCL/PF 4 MG/2 ML VIAL IVP ONE (10:30)
[2021-04-05] MEDS ORDERED: IV NS 0.9% 1,000 ML BAG IV ONE (10:30)
[2021-04-05] MEDS ORDERED: PANTOPRAZOLE 40 MG VIAL IV ONE (10:30)
[2021-04-05] MEDS ORDERED: INSU100V27 SQ (10:31)
[2021-04-05] MEDS ORDERED: ACET-2605 GT (10:31)
[2021-04-05] MEDS ORDERED: NA P133E RC (10:31)
[2021-04-05] MEDS ORDERED: CALCIUM ALGINATE TD (10:31)
[2021-04-05] MEDS ORDERED: CRAN425C6 GT (10:31)
[2021-04-05] MEDS ORDERED: LACT1CAP7 GT (10:31)
[2021-04-05] MEDS ORDERED: IPRA3AMP23 IH (10:31)
--- NOTE | 2021-04-05 10:42 | NUR ---
COVID SPECIMEN COLLECTED AND SENT TO LAB.
[2021-04-05 10:43] LABS: BASOPHILS % (AUTO) 0.3 % (0.0-2.0); EOSINOPHILS % (AUTO) 6.2 % (0.0-6.0); HEMATOCRIT 30 % (33-45); LYMPHOCYTES # (AUTO) 1.4 K/uL (0.8-4.8); LYMPHOCYTES % (AUTO) 11.6 % (20.0-44.0); MEAN CORPUSCULAR HGB CONC 33 g/dl (31.0-36.0); MEAN CORPUSCULAR VOLUME 94 fL (82-100); MONOCYTES # (AUTO) 0.9 K/uL (0.1-1.30); MONOCYTES % (AUTO) 6.9 % (2.0-12.0); NEUTROPHILS # (AUTO) 9.3 K/uL (1.8-8.9); PLATELET COUNT (AUTO) 313 K/uL (150-450); RED BLOOD CELL COUNT(AUTO) 3.21 MIL/uL (4.0-5.2); WHITE BLOOD COUNT (AUTO) 12.4 K/uL (4.3-11.0)
[2021-04-05 10:52] LABS: CALCIUM, SERUM 9.6 mg/dL (8.5-10.1); CREATININE 1.1 mg/dL (0.6-1.3)
--- NOTE | 2021-04-05 10:56 | NUR ---
MEMBER CERTIFICATION MANAGER AT BEDSIDE FOR XRAY.
[2021-04-05 10:57] LABS: BILIRUBIN,DIRECT 0.1 mg/dL (0.0-0.2); BILIRUBIN,TOTAL 0.3 mg/dL (0.2-1.0); TOTAL PROTEIN, SERUM 8.1 g/dL (6.4-8.2)
[2021-04-05 11:23] LABS: BILIRUBIN,URINE Negative (NEGATIVE); COLOR,URINE LIGHT YELLOW (YELLOW); LEUKOCYTE ESTERASE ,URINE Large (NEGATIVE); NITRITE, URINE Negative (NEGATIVE); PH,URINE 8.5 (5.0-8.0); PROTEIN,URINE 100 mg/dl (NEGATIVE); UGLUCOSE Negative (NEGATIVE); UROBILINOGEN,URINE 0.2 EU/dL (0.2)
--- NOTE | 2021-04-05 11:35 | NUR ---
MOVE SHEET SUBMITTED
[2021-04-05 11:43] LABS: BACTERIA,URINE Moderate /HPF (None Seen); SQUAMOUS EPITHELIAL CELL,UR Moderate /HPF (None Seen); WBC,URINE 81-100 /HPF (0-3)
--- NOTE | 2021-04-05 11:47 | NUR ---
PT BROTHER ASHLEY [phone]
[2021-04-05] MEDS ORDERED: CEFTRIAXONE 1 G in IV D5W 50 ML IV ONE (12:00)
[2021-04-05] MEDS ORDERED: CEFTRIAXONE 1GM BAG (ER ONLY) 50 ML IV ONE (12:01)
--- NOTE | 2021-04-05 12:02 | NUR ---
[facility] HOSPITALIST ON HIS WAY DOWN TO ER.
--- NOTE | 2021-04-05 12:05 | NUR ---
ARIANA FALLON DNP AT BEDSIDE FOR EVAL.
--- NOTE | 2021-04-05 12:22 | NUR ---
GOT BED 105
[2021-04-05] MEDS ORDERED: ENOXAPARIN SODIUM 30 MG/0.3 ML DISP.SYRIN SQ SCH (12:30)
[2021-04-05] MEDS ORDERED: ACETAMINOPHEN 325 MG TABLET MC PRN (12:30)
[2021-04-05] MEDS ORDERED: ONDANSETRON HCL/PF 4 MG/2 ML VIAL IVP PRN (12:30)
[2021-04-05] MEDS ORDERED: MORPHINE SULFATE INJ 2 MG/ML DISP.SYRIN IV PRN (12:30)
[2021-04-05] MEDS ORDERED: Z GUARD REMEDY 2 OZ OINT TP PRN (12:30)
--- NOTE | 2021-04-05 12:30 | NUR ---
REPORT GIVEN TO RADHA RICHTER FOR JOSE.
[2021-04-05 13:33] VITALS: BP 117/57
--- NOTE | 2021-04-05 14:00 | NUR ---
technician telecommunication systems note received patient from er with dx upper gi bleeding under care dr sellers .patient alert but unable to verbalize , placed on tele monitor sr hr 78 . rt ac hl intact and flushed well with gtube in plce but clumped, on npo at this time. all needs attended on 2l nc no sob noted at this time will monitor closely
[2021-04-05] MEDS: IV NS 0.9% 1,000 ML IV PRN (15:03)
[2021-04-05 16:00] VITALS: BP 102/68
--- NOTE | 2021-04-05 16:46 | NUR ---
MUSICAL INSTRUMENT SUPERVISOR NOTE CONSENT DONE FOR EGD, SPOKE WITH BROTHER WILL CONT IVF ORDERED
[2021-04-05] MEDS ORDERED: ANESTHESIA TRAY IN PYXIS 1 EA TRAY MC ONE (18:29)
[2021-04-05] MEDS ORDERED: MIDAZOLAM HCL 2 MG/2ML VIAL ONE (18:53)
[2021-04-05] MEDS ORDERED: PROPOFOL 20 ML IV ONE (18:53)
--- NOTE | 2021-04-05 18:53 | NUR ---
television cable installer note taken to egd as ordered
[2021-04-05] MEDS ORDERED: BISACODYL SUPP (10 MG) 10 MG/SUPP.RECT SUPP.RECT RC PRN (19:00)
--- NOTE | 2021-04-05 19:40 | NUR ---
RN NOTES, RECEIVED PATIENT FROM OR AT THIS TIME, PATIENT AROUSES TO VERBAL STIMULI, THAT'S PATIENT'S BASELINE, , WITH VS 97.9,90,18, 100% AT 2LPM VIA GA, , WITH ORDERS TO START GTF, NO ORDER FOR GTF AT THIS TIME, DIETARY CONSULT TO FOLLOW.
[2021-04-05] MEDS: PANTOPRAZOLE 40 MG VIAL IV SCH (20:15)
[2021-04-06] MEDS: IV NS 0.9% 1,000 ML IV PRN ×2 (06:12→19:50)
[2021-04-06 06:31] LABS: BASOPHILS % (AUTO) 0.5 % (0.0-2.0); EOSINOPHILS % (AUTO) 4.7 % (0.0-6.0); HEMATOCRIT 30 % (33-45); HEMOGLOBIN 9.9 g/dL (11.5-14.8); LYMPHOCYTES # (AUTO) 1.1 K/uL (0.8-4.8); LYMPHOCYTES % (AUTO) 10.3 % (20.0-44.0); MEAN CORPUSCULAR HGB CONC 33 g/dl (31.0-36.0); MEAN CORPUSCULAR VOLUME 97 fL (82-100); MONOCYTES # (AUTO) 0.9 K/uL (0.1-1.30); MONOCYTES % (AUTO) 8.6 % (2.0-12.0); NEUTROPHILS # (AUTO) 8.1 K/uL (1.8-8.9); NEUTROPHILS % (AUTO) 75.9 % (43.0-81.0); PLATELET COUNT (AUTO) 282 K/uL (150-450); RED BLOOD CELL COUNT(AUTO) 3.07 MIL/uL (4.0-5.2); WHITE BLOOD COUNT (AUTO) 10.7 K/uL (4.3-11.0)
[2021-04-06 07:06] LABS: CALCIUM, SERUM 9.3 mg/dL (8.5-10.1); PHOSPHORUS 3.8 mg/dL (2.5-4.9); POTASSIUM 4.1 mmol/L (3.5-5.1)
[2021-04-06 07:14] LABS: THYROID STIMULATING HORMONE 13.224 uIU/mL (0.358-3.74)
--- NOTE | 2021-04-06 07:25 | NUR ---
RN NOTES, PATIENT S/P EGD YESTERDAY, NO SIGNIFICANT CHANGE IN CONDITION, START GTF TODAY DIETARY CONSULT ORDERED, , ENDORSED TO STEVE GARCIA FOR CONTINUATION OF CARE.
[2021-04-06 08:00] VITALS: BP 119/71
[2021-04-06] MEDS: CEFTRIAXONE 1 G in IV D5W 50 ML IV SCH (09:05)
[2021-04-06] MEDS: PANTOPRAZOLE 40 MG VIAL IV SCH ×2 (09:05→21:12)
--- NOTE | 2021-04-06 11:03 | NUR ---
WOUND CARE CONSULT: REVIEWED CHART, NURSING DOCUMENTATION AND PHOTOS WHICH INDICATE WOUNDS, PRESENT ON ADMISSION. DR MATA AND DR MARTINEZ NOTIFIED OF SURGICAL AND DPM CONSULT REQUESTS. RECOMMENDATIONS MADE FOR SKIN PROTECTION. DISCUSSED WITH NURSING STAFF. PT IS ON [place] ISOFLEX LOW AIRLOSS BED. MD IN AGREEMENT WITH PLAN OF CARE.
[2021-04-06 12:00] VITALS: BP 143/41
[2021-04-06] MEDS ORDERED: HOME MED MISCELLANEOUS XX SCH (12:30)
[2021-04-06] MEDS ORDERED: LACTULOSE 10 G/15 ML UDC (PYXIS) GT PRN (12:30)
[2021-04-06] MEDS ORDERED: NA PHOS,M-B/NA PHOS,DI-BA 1 EA ENEMA RC PRN (12:30)
[2021-04-06] MEDS: NYSTATIN TOP POWDER 15 GM BOTTLE TP SCH ×2 (14:23→17:48)
[2021-04-06] MEDS: GLUCERNA 1.2 1,000 ML BOTTLE GT PRN (15:28)
[2021-04-06 16:00] VITALS: BP 139/32
[2021-04-06] MEDS: SENNOSIDES 8.6 MG TABLET GT SCH (17:43)
[2021-04-06] MEDS: FERROUS SULFATE UDC 300 MG/5 ML UDC GT SCH (17:43)
[2021-04-06] MEDS: DOCUSATE SODIUM LIQ 100 MG/10 ML UDC GT SCH (17:43)
[2021-04-06] MEDS: APIXABAN 5 MG TABLET GT SCH (17:44)
[2021-04-06] MEDS: METOPROLOL TARTRATE 25 MG TABLET GT SCH (17:45)
[2021-04-06] MEDS: BETHANECHOL CHLORIDE (25 MG) 25 MG TABLET GT SCH (17:47)
[2021-04-06] MEDS: PROSOURCE / PROSTAT (PYXIS) 30 ML UDC GT SCH (17:47)
--- NOTE | 2021-04-06 19:30 | NUR ---
MS1 RN NOTES RECEIVED ON BED,SLEEPING,AROUSABLE TO VERBAL STIMULI,BREATHING REGULAR, NOT IN ANY FORM OF DISTRESS,O2 2L/NC IN USED TO KEEP O2 SAT ABOVE 90%.WITH GONZALES CATH PLACE DRAINING CLEAR YELLOW URINE OUTPUT.WITH GT FEEDING OF GLUCERNA 1.2 AT 55ML/HR RATE ON GOING VIA FEEDING PUMP.NOTED 5ML RESIDUAL VOLUME.HOB ELEVATED FOR ASPIRATION PRECAUTION.PER REPORT,POSSIBLE WOUND DEBRIDEMENT AT BEDSIDE TOMORROW.REPOSITION PER PROTOCOL.WILL CONTINUE TO MONITOR STATUS.
[2021-04-06 20:00] VITALS: BP 123/59
[2021-04-06] MEDS: GABAPENTIN 100 MG CAPSULE GT SCH (21:12)
[2021-04-06] MEDS: MIRTAZAPINE 15 MG TABLET GT SCH (21:12)
[2021-04-06] MEDS: MONTELUKAST SODIUM (10MG) 10 MG TABLET GT SCH (21:12)
--- NOTE | 2021-04-06 23:00 | NUR ---
MS1 RN NOTES EVENING CARE RENDERED BY SIERRA TRUJILLO WITH HELP OF CHARGE NURSE KAE.DRESSING CHANGE TO MULTIPLE WOUNDS DONE,AWAITING DEBRIDEMENT IN THE MORNING.GT FEEDING IN PROGRESS.REPOSITION PER PROTOCOL FOR SKIN MANAGEMENT.
[2021-04-07 04:00] VITALS: BP 155/68
--- NOTE | 2021-04-07 06:20 | NUR ---
MS1 RN NOTES FAIRLY RESTED AT NIGHT,GT FEEDING TOLERATED WELL,NO N/V/D NOTED.FOR WOUND DEBRIDEMENT TODAY,COMSENT ON CHART.AFEBRILE.PCR TEST NEGATIVE.IN NO ACUTE DISTRESS.
--- NOTE | 2021-04-07 07:15 | NUR ---
RN OPENING NOTES RECEIVED PT. IN BED, SLEEPING, AROUSABLE TO VERBAL STIMULI, BREATHING REGULAR, NOT IN RESP. DISTRESS, O2 2L/NC WITH O2 SATURATIONS ABOVE 95%. GONZALES CATH IN PLACE DRAINING CLEAR YELLOW URINE OUTPUT. GT FEEDING OF GLUCERNA 1.2 AT 55ML/HR RATE ON GOING VIA FEEDING PUMP. 10 ML RESIDUALS NOTED AND RETURNED. G-TUBE PLACEMENT VERIFIED VIA AUSCULTATION AND FLUSHED WITH 10 CC WATER. IV (R) AC 20G FLUSHED AND PATENT. IVF D/C PER REPORT AND MD ORDERS. HOB ELEVATED FOR ASPIRATION PRECAUTIONS TURN AND REPOSITION PER PROTOCOL. NO ACUTE DISTRESS NOTED AT THIS TIME.
--- NOTE | 2021-04-07 07:20 | NUR ---
RN NOTE OBSERVED PATIENT IN BED ASLEEP AT THIS TIME, BREATHING EVEN AND UNLABORED, HOB ELEVATED FOR ASPIRATION PRECAUTION, ON GLUCERNA 1.2 @ 55 CC GT FEEDING TOLERATING WELL, PATENT WITH 10CC OF RESIDUAL NOTED, ON IVF HYDRATION @75 CC PATENT INFUSING WELL, SAFETY MEASURES OBSERVED, EQUIPMENT ALARM ON, BED WHEELS LOCK, CALL LIGHT WITHIN REACH, WILL CONTINUE TO MONITOR. Addendum: 04/07/21 at 1121 by JAMEY ATKINSON RN PATIENT ON GONZALES CATHETER DRAINING WELL VIA GRAVITY, NO HEMATURIA NOTED.
[2021-04-07 08:00] VITALS: BP 254/68
[2021-04-07] MEDS: POLYETHYLENE GLYCOL 3350 17 GM POWD.PACK GT SCH (09:07)
[2021-04-07] MEDS: PANTOPRAZOLE 40 MG VIAL IV SCH (09:08)
[2021-04-07] MEDS: FERROUS SULFATE UDC 300 MG/5 ML UDC GT SCH ×2 (09:08→16:23)
[2021-04-07] MEDS: SENNOSIDES 8.6 MG TABLET GT SCH ×2 (09:09→16:26)
[2021-04-07] MEDS: METOPROLOL TARTRATE 25 MG TABLET GT SCH ×2 (09:09→16:24)
[2021-04-07] MEDS: ASCORBIC ACID 500 MG TABLET GT SCH (09:10)
[2021-04-07] MEDS: BETHANECHOL CHLORIDE (25 MG) 25 MG TABLET GT SCH ×2 (09:10→16:26)
[2021-04-07] MEDS: DOCUSATE SODIUM LIQ 100 MG/10 ML UDC GT SCH ×2 (09:10→16:23)
[2021-04-07] MEDS: LEVOTHYROXINE SODIUM 75 MCG TABLET GT SCH (09:10)
[2021-04-07] MEDS: CHOLECALCIFEROL 1,000 UNIT TABLET (VIT D3) GT SCH (09:10)
[2021-04-07] MEDS: ZINC SULFATE 220 MG CAPSULE GT SCH (09:10)
[2021-04-07] MEDS: ACIDOPHILUS/BULGARICUS 1 EACH TAB.CHEW GT SCH (09:10)
[2021-04-07] MEDS: MULTIVITAMINS,THERAGRAN 1 UDTAB TABLET GT SCH (09:10)
[2021-04-07] MEDS: PROSOURCE / PROSTAT (PYXIS) 30 ML UDC GT SCH ×2 (09:13→16:23)
[2021-04-07] MEDS: NYSTATIN TOP POWDER 15 GM BOTTLE TP SCH ×2 (09:21→16:38)
[2021-04-07] MEDS: CEFTRIAXONE 1 G in IV D5W 50 ML IV SCH (09:21)
[2021-04-07] MEDS: APIXABAN 5 MG TABLET GT SCH ×2 (10:15→16:27)
[2021-04-07] MEDS: IV NS 0.9% 1,000 ML IV PRN (10:24)
[2021-04-07] MEDS: GLUCERNA 1.2 1,000 ML BOTTLE GT PRN (11:36)
[2021-04-07 16:00] VITALS: BP 136/68
--- NOTE | 2021-04-07 18:33 | NUR ---
RN NOTE PATIENT OBSERVED IN BED, AWAKE,OBTUNDED, BREATHING EVEN AND UNLABORED, ON 02 VIA NC @ 2LPM O2 SAT OF 98%, AFEBRILE AT THIS TIME, ON GT FEEDING GLUCERNA 1.2 @55CC/HR WATER FLUSH ORDERED, PATENT AND TOLERATING WELL WITH 20 CC OF RESIDUAL NOTED, GONZALES CATHETER DRAINING WELL VIA GRAVITY, PATENT NO HEMATURIA NOTED, WOUND TREATMENT DONE ORDERED, PATIENT MADE COMFORTABLE, SEEN BY ARIANA FALLON AWARE OF PATIENT CURRENT CONDITION, CALL LIGHT WITHIN REACH, BED WHEELS LOCK, BED ALARM ON, SAFETY MEASURES OBSERVED, CALL LIGHT WITHIN REACH, WILL CONTINUE TO MONITOR. Addendum: 04/07/21 at 1837 by JAMEY ATKINSON RN IV ON RIGHT AC PATENT FLUSHING WELL Addendum: 04/07/21 at 1844 by JAMEY ATKINSON RN WILL ENDORSE WITH NOC SHIFT
[2021-04-07 20:00] VITALS: BP 138/64
[2021-04-07] MEDS: GABAPENTIN 100 MG CAPSULE GT SCH (21:04)
[2021-04-07] MEDS: PANTOPRAZOLE 40 MG/PACK PACK GT SCH (21:04)
[2021-04-07] MEDS: MIRTAZAPINE 15 MG TABLET GT SCH (21:04)
[2021-04-07] MEDS: MONTELUKAST SODIUM (10MG) 10 MG TABLET GT SCH (21:04)
[2021-04-07] MEDS: MUPIROCIN OINT 2% 22 GM TUBE NS SCH (21:04)
[2021-04-08 04:00] VITALS: BP 135/66
--- NOTE | 2021-04-08 06:40 | NUR ---
RN CLOSING NOTE PT. IS IN BED, SLEEPING, A/O X1 AROUSABLE TO NAME, VERBAL STIMULI. BREATHING REGULAR, NOT IN RESP. DISTRESS, O2 2L/NC WITH O2 SATURATIONS ABOVE 96%. GONZALES CATH IN PLACE DRAINING CLEAR YELLOW URINE OUTPUT. GT FEEDING OF GLUCERNA 1.2 AT 55ML/HR RATE ON GOING VIA FEEDING PUMP, TOLERATED WELL IV (R) AC 20G FLUSHED AND PATENT. IVF D/C PER REPORT AND MD ORDERS. PT TOLERATED MEDICATION REGIMEN AND WOUND CARE ORDERED. FLACC SCALE USED FOR PAIN, NO PAIN NOTED. HOB ELEVATED FOR ASPIRATION PRECAUTIONS. TURN AND REPOSITIONED Q2H AND PRN. PATIENT KEPT CLEAN AND DRY THROUGHOUT SHIFT. SAFETY MEASURES IMPLEMENTED, HOB ELEVATED, BED LOWEST POSITION, CALL LIGHT WITHIN REACH, SIDE RAILS UP X3. NO ACUTE DISTRESS NOTED AT THIS TIME. WILL ENDORSE CONTINUITY OF CARE TO MORNING SHIFT RN.
--- NOTE | 2021-04-08 07:15 | NUR ---
RN NOTE PATIENT OBSERVED IN BED, AWAKE, NONVERBAL, BREATHING EVEN AND UNLABORED, ON NC @ 2LPM, BREATHING EVEN AND UNLABORED, ON GONZALES CATHETER DRAINING WELL, BED ALARM ON, FALL PRECAUTION OBSERVED, PATIENT ON GLUCERNA 1.2 @55CC/HR PATENT WITH RESIDUAL OF 10CC, WITH IV SITE ON THE RIGHT AC, G 20 FLUSHING WELL, NO AM LABS, WILL FOLLOW UP WITH HERNAN SAUCEDO OF THE NURSE ATB [place] ONGOING, BED WHEELS LOCK, CALL LIGHT WITHIN REACH, WILL CONTINUE TO MONITOR.
[2021-04-08 08:00] VITALS: BP 128/65
[2021-04-08] MEDS: CEFTRIAXONE 1 G in IV D5W 50 ML IV SCH (08:27)
[2021-04-08] MEDS: GLUCERNA 1.2 1,000 ML BOTTLE GT PRN (08:37)
[2021-04-08] MEDS: FERROUS SULFATE UDC 300 MG/5 ML UDC GT SCH (09:29)
[2021-04-08] MEDS: MUPIROCIN OINT 2% 22 GM TUBE NS SCH (09:29)
[2021-04-08] MEDS: LEVOTHYROXINE SODIUM 75 MCG TABLET GT SCH (09:29)
[2021-04-08] MEDS: POLYETHYLENE GLYCOL 3350 17 GM POWD.PACK GT SCH (09:29)
[2021-04-08] MEDS: BETHANECHOL CHLORIDE (25 MG) 25 MG TABLET GT SCH (09:29)
[2021-04-08] MEDS: ACIDOPHILUS/BULGARICUS 1 EACH TAB.CHEW GT SCH (09:30)
[2021-04-08] MEDS: CHOLECALCIFEROL 1,000 UNIT TABLET (VIT D3) GT SCH (09:30)
[2021-04-08] MEDS: ASCORBIC ACID 500 MG TABLET GT SCH (09:30)
[2021-04-08] MEDS: PANTOPRAZOLE 40 MG/PACK PACK GT SCH (09:30)
[2021-04-08] MEDS: DOCUSATE SODIUM LIQ 100 MG/10 ML UDC GT SCH (09:30)
[2021-04-08] MEDS: METOPROLOL TARTRATE 25 MG TABLET GT SCH (09:31)
[2021-04-08] MEDS: PROSOURCE / PROSTAT (PYXIS) 30 ML UDC GT SCH (09:31)
[2021-04-08] MEDS: SENNOSIDES 8.6 MG TABLET GT SCH (09:31)
[2021-04-08] MEDS: MULTIVITAMINS,THERAGRAN 1 UDTAB TABLET GT SCH (09:32)
[2021-04-08] MEDS: APIXABAN 5 MG TABLET GT SCH (09:33)
[2021-04-08] MEDS: NYSTATIN TOP POWDER 15 GM BOTTLE TP SCH (09:35)
[2021-04-08] MEDS: ZINC SULFATE 220 MG CAPSULE GT SCH (10:17)
[2021-04-08 12:00] VITALS: BP 145/76
--- NOTE | 2021-04-08 15:56 | NUR ---
RN NOTE PATIENT DISCHARGE GAVE REPORT TO EARNEST GARCIA OF [facility], PATIENT BEGIN DISCHARGE WITH NO S/S OF DISTRESS AT THIS TIME. BODY CHECK DONE, PICTURES TAKEN, BEING TRANSPORTED BY WITH O2 VIA NASAL CANNULA @ 2LPM O2 SAT OF 98% AFEBRILEA T THIS TIME, VTS WNL, PATIENT TRANSPORTED VIA [facility].
== END 2021-04-08 15:40 | DRG 368 ==
LOC: ER 10:06 → TELE1 12:55 → MEDSG1 04-06 12:07
PROVIDERS: ADMIT Nurse Practitioner Acute Care; ATTEND Nurse Practitioner Acute Care
PROC: 0DJ08ZZ Inspection of Upper Intestinal Tract, Via Natural or Artificial Opening Endoscopic (ICD-10-PCS; principal; 2021-04-05)
DX: K20.91 Esophagitis, unspecified with bleeding (principal); K29.71 Gastritis, unspecified, with bleeding; L89.224 Pressure ulcer of left hip, stage 4; L89.214 Pressure ulcer of right hip, stage 4; R53.2 Functional quadriplegia; E43 Unspecified severe protein-calorie malnutrition; E87.1 Hypo-osmolality and hyponatremia; D68.59 Other primary thrombophilia; N39.0 Urinary tract infection, site not specified; R64 Cachexia; G93.49 Other encephalopathy; Z68.1 Body mass index [BMI] 19.9 or less, adult; E11.22 Type 2 diabetes mellitus with diabetic chronic kidney disease; I25.10 Atherosclerotic heart disease of native coronary artery without angina pectoris; E03.9 Hypothyroidism, unspecified; E86.1 Hypovolemia; F32.9 Major depressive disorder, single episode, unspecified; N18.9 Chronic kidney disease, unspecified; F03.90 Unspecified dementia, unspecified severity, without behavioral disturbance, psychotic disturbance, mood disturbance, and anxiety; I12.9 Hypertensive chronic kidney disease with stage 1 through stage 4 chronic kidney disease, or unspecified chronic kidney disease; M20.42 Other hammer toe(s) (acquired), left foot; M20.41 Other hammer toe(s) (acquired), right foot; M24.562 Contracture, left knee; M24.561 Contracture, right knee; R13.10 Dysphagia, unspecified; Z20.822 Contact with and (suspected) exposure to COVID-19; Z79.4 Long term (current) use of insulin; Z79.01 Long term (current) use of anticoagulants; Z93.1 Gastrostomy status; M62.58 Muscle wasting and atrophy, not elsewhere classified, other site; L89.626 Pressure-induced deep tissue damage of left heel; L89.616 Pressure-induced deep tissue damage of right heel; Z87.440 Personal history of urinary (tract) infections; Z87.01 Personal history of pneumonia (recurrent); Z86.718 Personal history of other venous thrombosis and embolism; E88.09 Other disorders of plasma-protein metabolism, not elsewhere classified; S90.822A Blister (nonthermal), left foot, initial encounter; X58.XXXA Exposure to other specified factors, initial encounter; Y93.9 Activity, unspecified; Y92.129 Unspecified place in nursing home as the place of occurrence of the external cause; S80.811A Abrasion, right lower leg, initial encounter; L89.159 Pressure ulcer of sacral region, unspecified stage; M24.552 Contracture, left hip; M24.551 Contracture, right hip; I25.2 Old myocardial infarction; Z74.01 Bed confinement status; B96.4 Proteus (mirabilis) (morganii) as the cause of diseases classified elsewhere; K25.9 Gastric ulcer, unspecified as acute or chronic, without hemorrhage or perforation; K56.41 Fecal impaction
CPT/HCPCS: 36415; 71045-TC; 80048-TC; 80076-TC; 81001; 83690-TC; 83735-TC; 84100-TC; 84443-TC; 85025-TC; 85730-TC; 86850-TC; 87081-TC; 87086-TC; 87186-TC; A6253; A6403; A6407; C9113; C9803; G0378; J0696; J2250; J2354; J2370; J2405; J2704; J3490; J7030; J7042; J7050; J7060; U0003

== ENCOUNTER 2021-12-31 19:07 | Inpatient (IN) | payer MEDICARE, OTHER ==
[~2021-12-31] VITALS: Ht 154.9 cm; Wt 43.7 kg
[~2021-12-31 19:07] MED LIST changes: +ACET-2605 GT; -ARGI1POW13 GT; -BISA10SU11 RC; +CALCIUM ALGINATE TD; -CEFE1PIG3 IV; -CLOT15CR5 TP; -COLL30OI TP; +CRAN425C6 GT; -ESCI5TAB GT; -GEL100GE TD; +INSU100V27 SQ; -INSU100V39 SQ; +IPRA3AMP23 IH; +LACT1CAP7 GT; +NA P133E RC; -QUET25TA GT; -SODI480S2 TD; -VANC500P5 IV; -XEROFORM TD
--- NOTE | 2021-12-31 19:07 | NUR ---
PT JOSAFAT Issa FROM [facility] C/O EPISODE FOR LOW BP. PT IS AAOX0, NOT IN RESPIRATORY DISTRESS, HOOKED TO V/S MONITOR, KEPT RESTED AND COMFORTABLE. WILL CONTINUE TO MONITOR.
--- NOTE | 2021-12-31 19:12 | NUR ---
ASHLEY PALMER [phone]
[2021-12-31] MEDS ORDERED: IV NS 0.9% 1,000 ML BAG IV ONE ×2 (19:30→20:30)
--- NOTE | 2021-12-31 19:35 | NUR ---
GTUBE INTACT. F/C INTACT AND DRAINING YELLOW URINE
[2021-12-31 20:08] LABS: BILIRUBIN,URINE NEGATIVE (NEGATIVE); CALCIUM, SERUM 9.5 mg/dL (8.5-10.1); CARBON DIOXIDE 28 mmol/L (21-32); CHLORIDE 97 mmol/L (98-107); COLOR,URINE YELLOW (YELLOW); CREATININE 1.5 mg/dL (0.6-1.3); GLUCOSE 142 mg/dL (74-106); LEUKOCYTE ESTERASE ,URINE MODERATE (NEGATIVE); NITRITE, URINE POSITIVE (NEGATIVE); PH,URINE 6.5 (5.0-8.0); POTASSIUM 3.7 mmol/L (3.5-5.1); PROTEIN,URINE 30 mg/dl (NEGATIVE); SODIUM SERUM 133 mmol/L (136-145); UGLUCOSE NEGATIVE (NEGATIVE); UREA NITROGEN, BLOOD 49 mg/dL (7-18); UROBILINOGEN,URINE 0.2 EU/dL (0.2)
[2021-12-31 20:15] LABS: ALANINE AMINOTRANSFERASE 9 U/L (12-78); ALBUMIN 2.9 g/dL (3.4-5.0); ALKALINE PHOSPHATASE 79 U/L (46-116); ASPARTATE AMINOTRANSFERASE 15 U/L (15-37); BILIRUBIN,DIRECT 0.2 mg/dL (0.0-0.2); BILIRUBIN,TOTAL 0.6 mg/dL (0.2-1.0); TOTAL PROTEIN, SERUM 8.2 g/dL (6.4-8.2)
[2021-12-31 20:19] LABS: BACTERIA,URINE 4+ /HPF (None Seen); WBC,URINE 21-50 /HPF (0-3)
[2021-12-31 20:20] LABS: SQUAMOUS EPITHELIAL CELL,UR 0-2 /HPF (None Seen)
--- NOTE | 2021-12-31 20:25 | NUR ---
LACTIC ACID 2.3; DR. JEANINE SAUCEDO AWARE
[2021-12-31] MEDS ORDERED: PIPERACILLIN /TAZOBACTAM 3.375 G in IV D5W 50 ML IV ONE (20:30)
[2021-12-31] MEDS ORDERED: PIPERACILLIN /TAZOBACTAM 3.375 G VIAL IV ONE (20:32)
--- NOTE | 2021-12-31 20:44 | NUR ---
COVID ANTIGEN SWAB COLLECTED AND SENT TO LAB
[2021-12-31 20:49] LABS: BASOPHILS % (AUTO) 0.2 % (0.0-2.0); EOSINOPHILS % (AUTO) 0.1 % (0.0-6.0); HEMATOCRIT 35 % (33-45); HEMOGLOBIN 11.6 g/dL (11.5-14.8); LYMPHOCYTES # (AUTO) 1.6 K/uL (0.8-4.8); LYMPHOCYTES % (AUTO) 6.8 % (20.0-44.0); MEAN CORPUSCULAR HGB CONC 34 g/dl (31.0-36.0); MEAN CORPUSCULAR VOLUME 97 fL (82-100); MONOCYTES # (AUTO) 1.3 K/uL (0.1-1.30); MONOCYTES % (AUTO) 5.7 % (2.0-12.0); NEUTROPHILS # (AUTO) 20.7 K/uL (1.8-8.9); NEUTROPHILS % (AUTO) 87.2 % (43.0-81.0); PLATELET COUNT (AUTO) 278 K/uL (150-450); RED BLOOD CELL COUNT(AUTO) 3.56 MIL/uL (4.0-5.2); WHITE BLOOD COUNT (AUTO) 23.7 K/uL (4.3-11.0)
[2021-12-31] MEDS ORDERED: MAG HYDROX/AL HYDROX/SIMETH 30 ML UDC PO PRN (22:00)
[2021-12-31] MEDS ORDERED: MAGNESIUM HYDROXIDE 30 ML UDC PO PRN (22:00)
[2021-12-31] MEDS ORDERED: Z GUARD REMEDY 4 OZ OINT TP PRN (22:00)
[2021-12-31] MEDS ORDERED: ACETAMINOPHEN ES 500 MG TABLET GT PRN (22:00)
[2021-12-31] MEDS ORDERED: ZOLPIDEM TARTRATE 5 MG TABLET PO PRN (22:00)
[2021-12-31] MEDS ORDERED: NA PHOS,M-B/NA PHOS,DI-BA 1 EA ENEMA RC PRN (22:00)
[2021-12-31] MEDS ORDERED: ACETAMINOPHEN 325 MG TABLET PO PRN ×2 (22:00)
[2021-12-31] MEDS ORDERED: Medication Not On Formulary EA (Ipratropium/Albuterol Sulfate (Duoneb 2.5-0.5 Mg/3 Ml So IH PRN (22:00)
[2021-12-31] MEDS: MONTELUKAST SODIUM (10MG) 10 MG TABLET GT SCH (22:00)
[2021-12-31] MEDS ORDERED: ONDANSETRON HCL/PF 4 MG/2 ML VIAL IVP PRN (22:00)
--- NOTE | 2021-12-31 23:10 | NUR ---
FIXING CARPENTER AT PT'S BEDSIDE
--- NOTE | 2021-12-31 23:44 | NUR ---
RFA #22G S/L BLOOD COLLECTED AND SENT TO LAB
[2022-01-01] MEDS ORDERED: PIPERACILLIN /TAZOBACTAM 3.375 G in IV D5W 50 ML IV SCH ×2
--- NOTE | 2022-01-01 00:18 | NUR ---
LACTIC ACID 2.2
--- NOTE | 2022-01-01 01:55 | NUR ---
UPDATED ADRIENNE (SISTER)
[2022-01-01] MEDS ORDERED: MIRTAZAPINE 15 MG TABLET ONE (02:49)
[2022-01-01] MEDS ORDERED: GABAPENTIN 100 MG CAPSULE ONE (02:49)
[2022-01-01] MEDS: GABAPENTIN 100 MG CAPSULE GT SCH ×2 (02:59→21:45)
[2022-01-01] MEDS: MIRTAZAPINE 15 MG TABLET GT SCH ×2 (02:59→21:45)
[2022-01-01] MEDS ORDERED: ALBUTEROL FS 2.5 MG/0.5 ML VIAL.NEB NEB PRN (03:00)
[2022-01-01] MEDS ORDERED: IPRATROPIUM NEB FS 0.5 MG/2.5 ML AMPUL.NEB IH PRN (03:00)
[2022-01-01] MEDS ORDERED: ZOSYN IVPB 3.375 G in IV D5W 50ml IV ONE (03:00)
--- NOTE | 2022-01-01 03:01 | NUR ---
PT SLEEPING WELL WITH NO ACUTE DISTRESS AT THIS TIME. TURNED AND REPOSITIONED PATIENT. SAFETY MEASURES IN PLACE. PT KEPT CLEAN AND DRY.
[2022-01-01] MEDS ORDERED: PIPERACILLIN /TAZOBACTAM 3.375 G VIAL IV ONE (03:03)
[2022-01-01 05:06] LABS: BASOPHILS % (AUTO) 0.2 % (0.0-2.0); EOSINOPHILS % (AUTO) 0.5 % (0.0-6.0); HEMATOCRIT 29 % (33-45); HEMOGLOBIN 9.6 g/dL (11.5-14.8); LYMPHOCYTES # (AUTO) 1.4 K/uL (0.8-4.8); LYMPHOCYTES % (AUTO) 8.8 % (20.0-44.0); MEAN CORPUSCULAR HGB CONC 33 g/dl (31.0-36.0); MEAN CORPUSCULAR VOLUME 98 fL (82-100); MONOCYTES # (AUTO) 1.1 K/uL (0.1-1.30); MONOCYTES % (AUTO) 6.8 % (2.0-12.0); NEUTROPHILS # (AUTO) 13.4 K/uL (1.8-8.9); NEUTROPHILS % (AUTO) 83.7 % (43.0-81.0); PLATELET COUNT (AUTO) 227 K/uL (150-450); RED BLOOD CELL COUNT(AUTO) 2.96 MIL/uL (4.0-5.2)
[2022-01-01 05:20] LABS: CALCIUM, SERUM 8.4 mg/dL (8.5-10.1); CREATININE 1.2 mg/dL (0.6-1.3); MAGNESIUM 2.3 mg/dL (1.8-2.4); PHOSPHORUS 3.2 mg/dL (2.5-4.9); POTASSIUM 3.7 mmol/L (3.5-5.1)
[2022-01-01] MEDS ORDERED: LEVOTHYROXINE SODIUM 25 MCG TABLET ONE (06:05)
[2022-01-01] MEDS: LEVOTHYROXINE SODIUM 75 MCG TABLET GT SCH (06:12)
--- NOTE | 2022-01-01 06:56 | NUR ---
UPDATED ASHLEY (BROTHER) [phone]
--- NOTE | 2022-01-01 07:35 | NUR ---
PT RESTING COMFORTABLY IN BED, EASY TO AROUSE
[2022-01-01] MEDS ORDERED: ONDA4TAB5 GT (07:59)
[2022-01-01] MEDS ORDERED: COLL1POW2 TD (07:59)
[2022-01-01] MEDS ORDERED: FLUO60SO3 TP (07:59)
[2022-01-01] MEDS ORDERED: CLOT15CR27 TP (07:59)
[2022-01-01] MEDS ORDERED: CLOT15CR5 TP (07:59)
[2022-01-01] MEDS ORDERED: METR45CR2 TP (07:59)
[2022-01-01] MEDS: IV NS 0.9% 1,000 ML IV SCH ×2 (08:00)
[2022-01-01] MEDS ORDERED: ACETAMINOPHEN 325 MG TABLET PO SCH (09:00)
[2022-01-01] MEDS ORDERED: APIXABAN 5 MG TABLET GT SCH (09:00)
[2022-01-01] MEDS ORDERED: CRANBERRY EXT/C/L. SPOROGENES 405 MG/TAB TABLET GT SCH (09:00)
[2022-01-01] MEDS ORDERED: LACTULOSE 10 G/15 ML UDC (PYXIS) ONE (09:07)
[2022-01-01] MEDS ORDERED: DOCUSATE SODIUM LIQ 100 MG/10 ML UDC ONE (09:07)
[2022-01-01] MEDS ORDERED: MULTIVIT W/MINERALS 1 TAB TABLET ONE (09:10)
[2022-01-01] MEDS ORDERED: APIXABAN 5 MG TABLET ONE (09:10)
[2022-01-01] MEDS ORDERED: ZINC SULFATE 220 MG CAPSULE ONE (09:10)
[2022-01-01] MEDS ORDERED: FERROUS SULFATE UDC 300 MG/5 ML UDC ONE (09:10)
[2022-01-01] MEDS ORDERED: CHOLECALCIFEROL 1,000 UNIT TABLET (VIT D3) ONE (09:10)
[2022-01-01] MEDS ORDERED: ACIDOPHILUS/BULGARICUS 1 EACH TAB.CHEW ONE (09:11)
[2022-01-01] MEDS ORDERED: ASCORBIC ACID 500 MG TABLET ONE (09:11)
[2022-01-01] MEDS: METOPROLOL TARTRATE 25 MG TABLET GT SCH ×2 (09:33→17:00)
[2022-01-01] MEDS: PROSOURCE / PROSTAT (PYXIS) 30 ML UDC GT SCH ×2 (09:33→17:37)
[2022-01-01] MEDS: POLYETHYLENE GLYCOL 3350 17 GM POWD.PACK GT SCH (09:33)
[2022-01-01] MEDS: ACIDOPHILUS/BULGARICUS 1 EACH TAB.CHEW GT SCH (09:33)
[2022-01-01] MEDS: ZINC SULFATE 220 MG CAPSULE GT SCH (09:33)
[2022-01-01] MEDS: BETHANECHOL CHLORIDE (25 MG) 25 MG TABLET PO SCH ×2 (09:33→17:34)
[2022-01-01] MEDS: FERROUS SULFATE UDC 300 MG/5 ML UDC GT SCH ×2 (09:33→17:35)
[2022-01-01] MEDS: CHOLECALCIFEROL 1,000 UNIT TABLET (VIT D3) GT SCH (09:33)
[2022-01-01] MEDS: MULTIVIT W/MINERALS 1 TAB TABLET GT SCH (09:33)
[2022-01-01] MEDS: LACTULOSE 10 G/15 ML UDC (PYXIS) GT SCH ×2 (09:33→17:35)
[2022-01-01] MEDS: ASCORBIC ACID 500 MG TABLET GT SCH (09:33)
[2022-01-01] MEDS: SENNOSIDES 8.6 MG TABLET GT SCH ×2 (09:33→17:35)
[2022-01-01] MEDS: DOCUSATE SODIUM LIQ 100 MG/10 ML UDC GT SCH ×2 (09:33→17:35)
--- NOTE | 2022-01-01 09:54 | NUR ---
GOT BED 120-1
--- NOTE | 2022-01-01 10:16 | NUR ---
REPORT GIVEN TO TANG FOR JOSE
--- NOTE | 2022-01-01 10:51 | NUR ---
PT TRANSPORT IN STABLE CONDITION WITH ACLS PROTOCOL IN PLACE
[2022-01-01] MEDS: IV NS 0.9% 1,000 ML IV PRN ×2 (11:00→22:22)
--- NOTE | 2022-01-01 11:00 | NUR ---
RN NOTE RECEIVED REPORT FROM KIRAN GARCIA IN THE ER.
--- NOTE | 2022-01-01 11:15 | NUR ---
RN OPENING NOTE RECEIVED PT IN STABLE CONDITION FROM ER. PT A/0X1-2 NV. PT BREATHING EVEN AND UNLABORED. O2SAT 98% ON RA. PT IS NSR SB ON TELE. PT HAS GONZALES CATH DRAINING CLEAR YELLOW URINE. PT HAS RFA 22G PIV INTACT AND PATENT/ FAUSTINO 22G PIV INTACT AND PATENT NO FLUIDS RUNNING CURRENTLY. PT HAS GTUBE INTACT AND PATENT. PT HAS L/R POSTERIOR HIP AND SACRAL WOUNDS. ALL SAFETY MEASURES NOTED AND ACCOUNTED FOR. BED PLACED IN LOWEST POSITION AND WHEELS LOCKED IN PLACE. CALL LIGHT WITHIN REACH. WILL CONTINUE TO MONITOR.
[2022-01-01 12:00] VITALS: BP 133/99
[2022-01-01] MEDS ORDERED: IV NS 0.9% 1,000 ML IV ONE (13:00)
[2022-01-01] MEDS: PIPERACILLIN /TAZOBACTAM 3.375 G in IV D5W 100 ML IV SCH ×2 (13:06→21:44)
[2022-01-01] MEDS: VANCOMYCIN 1 GM in IV D5W 250ml IV SCH (15:11)
[2022-01-01 16:00] VITALS: BP 122/61
[2022-01-01] MEDS: GLUCERNA 1.2 1,000 ML BOTTLE GT PRN (17:37)
--- NOTE | 2022-01-01 18:33 | NUR ---
RN CLOSING NOTE PT RESTING IN BED. PT REMAINED STABLE THROUGHOUT SHIFT. PT A/0X1-2 NV. PT BREATHING EVEN AND UNLABORED. O2SAT 98% ON RA. PT IS NSR SB ON TELE. PT HAS GONZALES CATH DRAINING CLEAR YELLOW URINE. PT HAS RFA 22G PIV INTACT AND PATENT/ FAUSTINO 22G PIV INTACT AND PATENT NS RUNNING AT 100 ML/HR. PT HAS GTUBE INTACT AND PATENT RUNNING GLUCERNA 1.2 @ 35 ML/HR. PT HAS L/R POSTERIOR HIP AND SACRAL WOUNDS. ALL SAFETY MEASURES NOTED AND ACCOUNTED FOR. BED PLACED IN LOWEST POSITION AND WHEELS LOCKED IN PLACE. CALL LIGHT WITHIN REACH. WILL ENDORSE TO MUSICAL STRING MAKER RN.
--- NOTE | 2022-01-01 19:31 | NUR ---
RN OPENING NOTES: RECEIVED PT IN BED, AWAKE, A/OX1, NON-VERBAL. ON ROOM AIR AND PT TOLERATED WELL. IV ACCESS ON RFA #22G AND FAUSTINO #22G INTACT AND PATENT. NO S/S OF INFILTRATIONS. NS RUNNING AT 100 ML/HR. ON GTUBE INTACT AND PATENT RUNNING GLUCERNA 1.2 @ 35 ML/HR, GOAL IS 45CC/HR. NO FACIAL GRIMACING NOTED. NO ACUTE DISTRESS. ON GONZALES CATH INTACT WITH YELLOWISH CLEAR URINE. ALL SAFETY MEASURES IN PLACE. BED PLACED IN LOWEST POSITION LOCKED. SIDE RAILS X3, PLACE CALL LIGHT WITHIN REACH. WILL CONTINUE TO MONITOR
[2022-01-01 20:00] VITALS: BP 117/75
[2022-01-01] MEDS: MONTELUKAST SODIUM (10MG) 10 MG TABLET GT SCH (21:45)
[2022-01-02] VITALS: BP 147/83
[2022-01-02 04:00] VITALS: BP 121/64
[2022-01-02] MEDS: PIPERACILLIN /TAZOBACTAM 3.375 G in IV D5W 100 ML IV SCH ×3 (04:42→20:32)
--- NOTE | 2022-01-02 06:44 | NUR ---
RN CLOSING NOTES: PT IN BED, AWAKE, A/OX1, NON-VERBAL. ON ROOM AIR, O2 SAT 96% AND PT TOLERATED WELL. IV ACCESS ON RFA #22G AND FAUSTINO #22G INTACT AND PATENT. NO S/S OF INFILTRATIONS. NS RUNNING AT 100 ML/HR. ON GTUBE INTACT AND PATENT RUNNING GLUCERNA 1.2 @ 35 ML/HR, GOAL IS 45CC/HR. NO FACIAL GRIMACING NOTED. NO ACUTE DISTRESS. ON GONZALES CATH INTACT WITH YELLOWISH CLEAR URINE. ALL DUE MEDS GIVEN ORDERED. ALL SAFETY MEASURES IN PLACE. BED PLACED IN LOWEST POSITION LOCKED. SIDE RAILS X3, PLACE CALL LIGHT WITHIN REACH. WILL ENDORSE TO MORNING SHIFT NURSE.
[2022-01-02] MEDS: LEVOTHYROXINE SODIUM 75 MCG TABLET GT SCH (07:09)
[2022-01-02 07:48] LABS: BASOPHILS % (AUTO) 0.4 % (0.0-2.0); HEMATOCRIT 33 % (33-45); HEMOGLOBIN 11.1 g/dL (11.5-14.8); LYMPHOCYTES % (AUTO) 9.5 % (20.0-44.0); MEAN CORPUSCULAR HGB CONC 33 g/dl (31.0-36.0); MEAN CORPUSCULAR VOLUME 99 fL (82-100); MONOCYTES # (AUTO) 0.7 K/uL (0.1-1.30); MONOCYTES % (AUTO) 6.3 % (2.0-12.0); NEUTROPHILS # (AUTO) 8.5 K/uL (1.8-8.9); NEUTROPHILS % (AUTO) 79.8 % (43.0-81.0); PLATELET COUNT (AUTO) 222 K/uL (150-450); RED BLOOD CELL COUNT(AUTO) 3.34 MIL/uL (4.0-5.2); WHITE BLOOD COUNT (AUTO) 10.7 K/uL (4.3-11.0)
[2022-01-02 08:41] LABS: CALCIUM, SERUM 8.4 mg/dL (8.5-10.1); CARBON DIOXIDE 23 mmol/L (21-32); CHLORIDE 109 mmol/L (98-107); GLUCOSE 113 mg/dL (74-106); PHOSPHORUS 2.1 mg/dL (2.5-4.9); POTASSIUM 3.8 mmol/L (3.5-5.1); SODIUM SERUM 140 mmol/L (136-145); UREA NITROGEN, BLOOD 27 mg/dL (7-18)
[2022-01-02] MEDS: FERROUS SULFATE UDC 300 MG/5 ML UDC GT SCH ×2 (08:41→16:41)
[2022-01-02] MEDS: LACTULOSE 10 G/15 ML UDC (PYXIS) GT SCH ×2 (08:41→16:41)
[2022-01-02] MEDS: DOCUSATE SODIUM LIQ 100 MG/10 ML UDC GT SCH ×2 (08:41→16:41)
[2022-01-02] MEDS: SENNOSIDES 8.6 MG TABLET GT SCH ×2 (08:42→16:41)
[2022-01-02] MEDS: ACIDOPHILUS/BULGARICUS 1 EACH TAB.CHEW GT SCH (08:42)
[2022-01-02] MEDS: ASCORBIC ACID 500 MG TABLET GT SCH (08:42)
[2022-01-02] MEDS: POLYETHYLENE GLYCOL 3350 17 GM POWD.PACK GT SCH (08:42)
[2022-01-02] MEDS: MULTIVIT W/MINERALS 1 TAB TABLET GT SCH (08:42)
[2022-01-02] MEDS: ZINC SULFATE 220 MG CAPSULE GT SCH (08:42)
[2022-01-02] MEDS: METOPROLOL TARTRATE 25 MG TABLET GT SCH ×2 (08:43→16:41)
[2022-01-02] MEDS: PROSOURCE / PROSTAT (PYXIS) 30 ML UDC GT SCH ×2 (08:43→16:42)
[2022-01-02] MEDS: CHOLECALCIFEROL 1,000 UNIT TABLET (VIT D3) GT SCH (08:43)
[2022-01-02] MEDS: BETHANECHOL CHLORIDE (25 MG) 25 MG TABLET PO SCH ×2 (08:51→16:41)
[2022-01-02] MEDS: IV NS 0.9% 1,000 ML IV PRN ×2 (08:57→21:53)
[2022-01-02 09:23] VITALS: BP 163/81
--- NOTE | 2022-01-02 09:25 | NUR ---
WEB MANAGER OPENING NOTES RECEIVED PATIENT ON BED, ASLEEP, A/O X 1, NON-VERBAL. ON ROOM AIR; NO SOB NOTED. TELE MONITOR WITH A CURRENT READING OF SR 68. AFEBRILE. NO S/SX OF DISTRESS NOTED. FAUSTINO AND RFA IV ACCESS G # 33 PRESENT, PATENT, FLUSHES WELL. NO INFILTRATION NOTED AT SITE. G-TUBE IN PLACE RUNNING GLUCERNA 1.2 AT 35 MLS/HR. GONZALES CATH PRESENT DRAINING CLEAR YELLOW URINE TO GRAVITY. SAFETY PRECAUTIONS IN PLACE, BED IN LOW POSITION AND LOCKED, RAILS UP X2, CALL LIGHT WITHIN REACH. WILL CONTINUE TO MONITOR PATIENT.
[2022-01-02 13:31] VITALS: BP 105/53
[2022-01-02] MEDS ORDERED: NEUTRA PHOS 1 POWD.PACKET PO ONE (15:30)
[2022-01-02] MEDS: VANCOMYCIN 1 GM in IV D5W 250ml IV SCH (16:00)
[2022-01-02 16:09] VITALS: BP 115/76
--- NOTE | 2022-01-02 18:43 | NUR ---
DOOR BUILDER CLOSING NOTES PATIENT REMAINS IN BED, AWAKE, A/O X 2. ON ROOM AIR; NO SOB NOTED. TELE MONITOR WITH A CURRENT READING OF SR 60S. AFEBRILE DURING SHIFT. NO S/SX OF DISTRESS NOTED. FAUSTINO AND RFA IV ACCESS G # 22 PRESENT, PATENT, FLUSHES WELL. NO INFILTRATION NOTED AT SITE. G-TUBE IN PLACE RUNNING GLUCERNA 1.2 AT 35 MLS/HR. GONZALES CATH PRESENT DRAINING CLEAR YELLOW URINE TO GRAVITY. ALL NEEDS ATTENDED DURING THE DAY. SAFETY PRECAUTIONS IN PLACE, BED IN LOW POSITION AND LOCKED, RAILS UP X2, CALL LIGHT WITHIN REACH. WILL ENDORSE TO [facility] NURSE PRACTITIONER NURSE.
[2022-01-02] MEDS ORDERED: MUPIROCIN OINT 2% 22 GM TUBE TP SCH (19:00)
[2022-01-02 20:00] VITALS: BP 161/81
[2022-01-02] MEDS: MUPIROCIN OINT 2% 22 GM TUBE NS SCH (20:32)
[2022-01-02] MEDS ORDERED: MUPIROCIN OINT 2% 22 GM TUBE NS SCH (21:00)
[2022-01-02] MEDS: MIRTAZAPINE 15 MG TABLET GT SCH (21:07)
[2022-01-02] MEDS: GABAPENTIN 100 MG CAPSULE GT SCH (21:07)
[2022-01-02] MEDS: MONTELUKAST SODIUM (10MG) 10 MG TABLET GT SCH (21:07)
--- NOTE | 2022-01-02 23:22 | NUR ---
Patient is A&Ox1 to self. SR on quality assurance monitor. Powell patent and draining clear yellow urine. Glucerna feeding going at 35ml/hr with goal of 45. no residual so feeding upped to 40ml/hr. RFA #22G and FAUSTINO #20 gauge iVs intact and patent. NS at 100cc/hr running to RFA #22G. No signs of distress. VSS. Will continue to monitor. Addendum: 01/02/22 at 7603 by ISAAC MADSEN RN 2000 -opening note
[2022-01-03] VITALS: BP 132/63
[2022-01-03] MEDS: GLUCERNA 1.2 1,000 ML BOTTLE GT PRN (01:53)
[2022-01-03 04:00] VITALS: BP 138/73
[2022-01-03] MEDS: PIPERACILLIN /TAZOBACTAM 3.375 G in IV D5W 100 ML IV SCH ×3 (04:18→20:09)
--- NOTE | 2022-01-03 06:11 | NUR ---
RN CLOSING NOTES Patient is A&Ox1 sometimes says a word or 2 in different language, ex. Marisol as thank you. Patient has been SR on the tele monitor in the 60s for HR. Had 1 bm and good urine output 1500ml clear pale yellow urine. Turned q2h kept clean and dry. Tolerating glucerna 1.2 at 40mL/hr well. RFA #22G running NS at 100cc/hr and zosyn over 4 hours at 25ml/hr. FAUSTINO #20G intact and patent as well. BP good overnight no hypotension. Tolerating IV ABX well, no adverse side effects. Currently resting in bed though easy to wake in no signs of distress.
[2022-01-03] MEDS: LEVOTHYROXINE SODIUM 75 MCG TABLET GT SCH (06:18)
--- NOTE | 2022-01-03 07:30 | NUR ---
RN OPENING NOTES RECEIVED PATIENT IN BED. A/O X1. NOT IN DISTRESS NO COMPLAINTS OF PAIN NOTED. GT PATENT AND INTACT WITH NO RESIDUAL WITH TF RUNNING GLUCERNA 1.2 @ 40CCHR. RFA #22G PATENT AND INTACT WITH IVF RUNNING NS @ 100CCHR. GONZALES CATHETER IN PLACE PATENT AND INTACT WITH YELLOW COLORED URINE, NO BLEEDING NOTED. KEPT HON ELEVATED. BED TO LOWEST POSITION AND LOCKED.
[2022-01-03 07:43] LABS: CALCIUM, SERUM 8.7 mg/dL (8.5-10.1); CARBON DIOXIDE 23 mmol/L (21-32); CHLORIDE 106 mmol/L (98-107); CREATININE 0.9 mg/dL (0.6-1.3); GLUCOSE 116 mg/dL (74-106); PHOSPHORUS 2.1 mg/dL (2.5-4.9); POTASSIUM 3.7 mmol/L (3.5-5.1); SODIUM SERUM 138 mmol/L (136-145); UREA NITROGEN, BLOOD 18 mg/dL (7-18)
[2022-01-03 08:00] VITALS: BP 186/50
[2022-01-03] MEDS: FERROUS SULFATE UDC 300 MG/5 ML UDC GT SCH ×2 (08:45→16:14)
[2022-01-03] MEDS: POLYETHYLENE GLYCOL 3350 17 GM POWD.PACK GT SCH (08:45)
[2022-01-03] MEDS: LACTULOSE 10 G/15 ML UDC (PYXIS) GT SCH ×2 (08:45→16:14)
[2022-01-03] MEDS: BETHANECHOL CHLORIDE (25 MG) 25 MG TABLET PO SCH ×2 (08:45→16:14)
[2022-01-03] MEDS: DOCUSATE SODIUM LIQ 100 MG/10 ML UDC GT SCH ×2 (08:45→16:14)
[2022-01-03] MEDS: SENNOSIDES 8.6 MG TABLET GT SCH ×2 (08:45→16:14)
[2022-01-03] MEDS: PROSOURCE / PROSTAT (PYXIS) 30 ML UDC GT SCH ×2 (08:45→16:15)
[2022-01-03] MEDS: MUPIROCIN OINT 2% 22 GM TUBE NS SCH ×2 (08:45→20:09)
[2022-01-03] MEDS: CHOLECALCIFEROL 1,000 UNIT TABLET (VIT D3) GT SCH (08:45)
[2022-01-03] MEDS: MULTIVIT W/MINERALS 1 TAB TABLET GT SCH (08:45)
[2022-01-03] MEDS: METOPROLOL TARTRATE 25 MG TABLET GT SCH ×2 (08:46→16:14)
[2022-01-03] MEDS: ACIDOPHILUS/BULGARICUS 1 EACH TAB.CHEW GT SCH (08:46)
[2022-01-03] MEDS: ZINC SULFATE 220 MG CAPSULE GT SCH (08:46)
[2022-01-03] MEDS: ASCORBIC ACID 500 MG TABLET GT SCH (08:46)
--- NOTE | 2022-01-03 09:57 | NUR ---
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 DR MATA NOTIFIED OF SURGICAL CONSULT REQUEST. RECOMMENDATIONS MADE FOR SKIN PROTECTION. DISCUSSED WITH NURSING STAFF. PT TO BE PLACED ON STAR ISOFLEX LOW AIRLOSS BED. IN AGREEMENT WITH PLAN OF CARE. Addendum: 01/03/22 at 0959 by ANDRES RENDON WNDNU Amended: Links added.
[2022-01-03] MEDS ORDERED: NEUTRA PHOS 1 POWD.PACKET GT ONE (11:00)
--- NOTE | 2022-01-03 11:00 | NUR ---
RN NOTES CRISIS MANAGER ANIRUDH MADE AWARE PATIENT NEEDS MED RECON.
[2022-01-03] MEDS: IV NS 0.9% 1,000 ML IV PRN ×2 (11:17→23:17)
[2022-01-03] MEDS ORDERED: MUPIROCIN OINT 2% 22 GM TUBE NS SCH (11:30)
[2022-01-03 12:00] VITALS: BP 162/53
[2022-01-03] MEDS: VANCOMYCIN 1 GM in IV D5W 250ml IV SCH (14:09)
[2022-01-03 16:00] VITALS: BP 166/75
--- NOTE | 2022-01-03 17:50 | NUR ---
RN NOTES PATIENT HAD AN EPISODE OF VOMITING X 2 AROUND 1700 WHILE CHANGING PATIENT. SUCTIONED PATIENT. KEPT HOB ELEVATED. JUAN RAMON FALLON MADE AWARE. AWAITING RESPONSE.
--- NOTE | 2022-01-03 18:31 | NUR ---
RN CLOSING NOTES PATIENT AWAKE IN BED IN HIGH CHANDLER'S POSITION. NOT IN DISTRESS NO COMPLAINTS OF PAIN NOTED. PATIENT SINUS RHYTHM ON 70S. GT INTACT WITH TF RUNNING. FC DRAINED WITH 1650CC URINE. WOUND CONSULT DONE. BED TO LOWEST POSITION AND LOCKED. KEPT HOB ELEVATED. WILL ENDORSE TO JOB SUPERINTENDENT NURSE ON DUTY.
--- NOTE | 2022-01-03 19:10 | NUR ---
RN NOTE RECEIVED PATIENT IN BED RESTING ALERT ORIENTED X1 ON ROOM AIR O2:95% ON G-TUBE FEEDING GLUCERNA 1.2 40CC/HR CHECKED PLACEMENT IN PLACE NO RESIDUAL NOTED,IV SITE IS ON RIGHT FOREARM AND LEFT UPPER ARM INTACT PATENT ON NS IV HYDRATION 100CC/HR,GONZALES CATH IN PLACE URINE DRAINING YELLOW/CLEAR BY GRAVITY,SAFETY MEASURE IMPLEMENT HEAD OF THE BED ELEVATED,BED IN LOW PORTION AND LOCKED CONTINUE TO MONITOR.
[2022-01-03 20:00] VITALS: BP 149/75
[2022-01-03] MEDS: THERAHONEY GEL 1.5 OZ TUBE TP SCH (21:17)
[2022-01-03] MEDS: MIRTAZAPINE 15 MG TABLET GT SCH (21:56)
[2022-01-03] MEDS: GABAPENTIN 100 MG CAPSULE GT SCH (21:56)
[2022-01-03] MEDS: MONTELUKAST SODIUM (10MG) 10 MG TABLET GT SCH (21:56)
[2022-01-04] VITALS: BP 144/70
[2022-01-04 04:00] VITALS: BP 132/60
[2022-01-04] MEDS: PIPERACILLIN /TAZOBACTAM 3.375 G in IV D5W 100 ML IV SCH ×2 (04:02→13:05)
[2022-01-04] MEDS: GLUCERNA 1.2 1,000 ML BOTTLE GT PRN (05:43)
--- NOTE | 2022-01-04 06:52 | NUR ---
RN NOTE PATIENT REMAINS ON ALERT ORIENTED X1 ON ROOM AIR NO SOB NOT ACUTE DISTRESS NOTED ALL DUE MEDS GIVEN MD ORDERED KEPT CLEAN AND DRY ALL THE TIME,KEPT COMFORTABLE REPOSITION EVERY 2 HOURS ENDORSE NEXT COMING SHIFT FOR CONTINUATION OF CARE.
[2022-01-04 07:44] LABS: CALCIUM, SERUM 8.3 mg/dL (8.5-10.1); CREATININE 0.9 mg/dL (0.6-1.3); PHOSPHORUS 2.6 mg/dL (2.5-4.9); POTASSIUM 3.3 mmol/L (3.5-5.1)
--- NOTE | 2022-01-04 07:58 | NUR ---
RN OPENING NOTE PATIENT RECEIVED IN BED, AO x 1, ABLE TO RESPONDS ALL STIMULI. IN NO ACUTE DISTRESS NOTED. RESPIRATORY EVEN AND UNLABORED ON ROOM AIR. SKIN IS WARM TO TOUCH, KEEP CLEAN/DRY, INTACT IV SITE. GONZALES CATH CONNECTING TO URINE BAG. G-TUBE FEEDING RUNNING AT 40 ML/HR AT THIS TIME. KEPT ELEVATED HOB FOR ENSURE AIRWAY AND ASPIRATION PRECAUTION, ALSO LOWEST POSITION OF THE BED, S/R UP X 2, BED ALARM IS ON AT ALL THE TIMES, ALL SAFETY PRECAUTION APPLIED. CALL LIGHT WITHIN REACH, WILL CONTINUE TO MONITOR.
[2022-01-04 08:00] VITALS: BP 152/86
[2022-01-04] MEDS: PROSOURCE / PROSTAT (PYXIS) 30 ML UDC GT SCH ×2 (09:04→17:18)
[2022-01-04] MEDS: IV NS 0.9% 1,000 ML IV PRN (09:10)
[2022-01-04] MEDS: LACTULOSE 10 G/15 ML UDC (PYXIS) GT SCH ×2 (09:11→17:14)
[2022-01-04] MEDS: POLYETHYLENE GLYCOL 3350 17 GM POWD.PACK GT SCH (09:11)
[2022-01-04] MEDS: ZINC SULFATE 220 MG CAPSULE GT SCH (09:11)
[2022-01-04] MEDS: FERROUS SULFATE UDC 300 MG/5 ML UDC GT SCH ×2 (09:11→17:14)
[2022-01-04] MEDS: CHOLECALCIFEROL 1,000 UNIT TABLET (VIT D3) GT SCH (09:11)
[2022-01-04] MEDS: DOCUSATE SODIUM LIQ 100 MG/10 ML UDC GT SCH ×2 (09:11→17:14)
[2022-01-04] MEDS: BETHANECHOL CHLORIDE (25 MG) 25 MG TABLET PO SCH ×2 (09:11→17:14)
[2022-01-04] MEDS: MULTIVIT W/MINERALS 1 TAB TABLET GT SCH (09:12)
[2022-01-04] MEDS: ASCORBIC ACID 500 MG TABLET GT SCH (09:12)
[2022-01-04] MEDS: ACIDOPHILUS/BULGARICUS 1 EACH TAB.CHEW GT SCH (09:12)
[2022-01-04] MEDS: SENNOSIDES 8.6 MG TABLET GT SCH ×2 (09:12→17:14)
[2022-01-04] MEDS: METOPROLOL TARTRATE 25 MG TABLET GT SCH ×2 (09:12→17:14)
[2022-01-04] MEDS: LEVOTHYROXINE SODIUM 75 MCG TABLET GT SCH (09:20)
[2022-01-04] MEDS: MUPIROCIN OINT 2% 22 GM TUBE NS SCH ×2 (09:20→20:16)
[2022-01-04] MEDS: THERAHONEY GEL 1.5 OZ TUBE TP SCH (09:21)
[2022-01-04] MEDS ORDERED: POTASSIUM CHLORIDE 20 MEQ TAB.PRT.SR PO SCH (09:30)
[2022-01-04 14:00] VITALS: BP 152/80
[2022-01-04 16:00] VITALS: BP 142/72
[2022-01-04] MEDS: MEROPENEM 500 MG in IV NS 0.9% 100 ML IV SCH (17:18)
--- NOTE | 2022-01-04 18:31 | NUR ---
RN CLOSE NOTE PATIENT IN BED, IN NO ACUTE DISTRESS OBSERVED. RESPIRATION EVEN AND UNLABORED ON ROOM AIR. SKIN IS WARM TO TOUCH KEEP CLEAN//DRY, INTACT IV SITE. G-TUBE RUNNING AT 45ML AND PATIENT TOLERATED, NO RESIDUAL OBSERVED. KEPT ELEVATED HOB FOR ENSURE AIRWAY AND ASPIRATION PRECAUTION. ALSO LOWEST POSITION OF THE BED FOR SAFETY. CALL LIGHT WITHIN REACH, WILL ENDORSE TO SHREDDER PICKER.
--- NOTE | 2022-01-04 19:00 | NUR ---
RN NOTE RECEIVED PATIENT IN BED RESTING ALERT ORIENTED X1 CONTRACTED,ON ROOM AIR O2:94% IV SITE IS ON RIGHT FOREARM AND LEFT UPPER ARM INTACT PATENT ON IV HYDRATION NS 100CC/HR,ON G-TUBE FEEDING GLUCERNA 1.2 40CC/HR CHECKED PLACEMENT IN PLACE NO RESIDUAL NOTED,GONZALES CATH IN PLACE URINE DRAINING YELLOW/CLEAR BY GRAVITY,SAFETY MEASURE IMPLEMENT HEAD OF THE BED ELEVATED,BED IN LOW POSITION AND LOCKED CONTINUE TO MONITOR.
[2022-01-04 20:00] VITALS: BP 149/78
[2022-01-04] MEDS: DOXYCYCLINE HYCLATE (100 MG) 100 MG TABLET PO SCH (20:16)
[2022-01-04] MEDS: MIRTAZAPINE 15 MG TABLET GT SCH (21:34)
[2022-01-04] MEDS: MONTELUKAST SODIUM (10MG) 10 MG TABLET GT SCH (21:34)
[2022-01-04] MEDS: GABAPENTIN 100 MG CAPSULE GT SCH (21:34)
[2022-01-05] VITALS: BP 136/81
[2022-01-05] MEDS: IV NS 0.9% 1,000 ML IV PRN (03:32)
[2022-01-05 04:00] VITALS: BP 140/72
[2022-01-05] MEDS: MEROPENEM 500 MG in IV NS 0.9% 100 ML IV SCH (04:15)
--- NOTE | 2022-01-05 06:16 | NUR ---
RN NOTE OBTAINED TELEPHONE CONSENT FROM RESPONSIBLE REPUBLICAN SISTER ADRIENNE FOR DEBRIDEMENT OF BILATERAL HIPS.
--- NOTE | 2022-01-05 07:00 | NUR ---
RN NOTE PATIENT REMAINS ALERT ORIENTED X1 ON ROOM AIR, NO SOB NOT ACUTE DISTRESS NOTED ALL DUE MEDS GIVEN MD ORDERED KEPT CLEAN AND DRY ALL THE TIME,REPOSITIONED EVERY 2 HOURS,ALL NEEDS MET,HEAD OF THE BED ELEVATED ENDORSE NEXT COMING SHIFT FOR CONTINUATION OF CARE,
[2022-01-05 07:32] LABS: CALCIUM, SERUM 8.2 mg/dL (8.5-10.1); CREATININE 0.9 mg/dL (0.6-1.3); POTASSIUM 3.5 mmol/L (3.5-5.1)
[2022-01-05] MEDS: CHOLECALCIFEROL 1,000 UNIT TABLET (VIT D3) GT SCH (09:19)
[2022-01-05] MEDS: DOCUSATE SODIUM LIQ 100 MG/10 ML UDC GT SCH (09:19)
[2022-01-05] MEDS: POLYETHYLENE GLYCOL 3350 17 GM POWD.PACK GT SCH (09:19)
[2022-01-05] MEDS: ACIDOPHILUS/BULGARICUS 1 EACH TAB.CHEW GT SCH (09:19)
[2022-01-05] MEDS: METOPROLOL TARTRATE 25 MG TABLET GT SCH (09:19)
[2022-01-05] MEDS: LACTULOSE 10 G/15 ML UDC (PYXIS) GT SCH (09:19)
[2022-01-05] MEDS: DOXYCYCLINE HYCLATE (100 MG) 100 MG TABLET PO SCH (09:19)
[2022-01-05] MEDS: FERROUS SULFATE UDC 300 MG/5 ML UDC GT SCH (09:19)
[2022-01-05] MEDS: SENNOSIDES 8.6 MG TABLET GT SCH (09:20)
[2022-01-05] MEDS: MULTIVIT W/MINERALS 1 TAB TABLET GT SCH (09:20)
[2022-01-05] MEDS: ASCORBIC ACID 500 MG TABLET GT SCH (09:20)
[2022-01-05] MEDS: ZINC SULFATE 220 MG CAPSULE GT SCH (09:20)
[2022-01-05] MEDS: PROSOURCE / PROSTAT (PYXIS) 30 ML UDC GT SCH (09:21)
[2022-01-05] MEDS: MUPIROCIN OINT 2% 22 GM TUBE NS SCH (09:21)
[2022-01-05] MEDS: LEVOTHYROXINE SODIUM 75 MCG TABLET GT SCH (09:21)
[2022-01-05] MEDS: BETHANECHOL CHLORIDE (25 MG) 25 MG TABLET PO SCH (09:23)
[2022-01-05] MEDS: THERAHONEY GEL 1.5 OZ TUBE TP SCH (09:24)
[2022-01-05 12:00] VITALS: BP 147/86
--- NOTE | 2022-01-05 14:39 | NUR ---
RN NOTE REPORT GIVEN TO TANIA AT [facility]. PER RN TANIA LEAVE RFA #22 AND FAUSTINO #20 [place] AND [place]. PT ETA PU 1500. WILL CONTINUE TO MONITOR.
== END 2022-01-05 15:42 | DRG 871 ==
LOC: ER 19:08 → TRANSITION 01-01 02:26 → TELE1 01-01 10:23
PROVIDERS: ADMIT Family Medicine; ATTEND Nurse Practitioner Acute Care
DX: A41.9 Sepsis, unspecified organism (principal); L89.224 Pressure ulcer of left hip, stage 4; L89.214 Pressure ulcer of right hip, stage 4; N17.0 Acute kidney failure with tubular necrosis; J15.9 Unspecified bacterial pneumonia; E44.0 Moderate protein-calorie malnutrition; D68.59 Other primary thrombophilia; E87.1 Hypo-osmolality and hyponatremia; E87.2 Acidosis; Z16.12 Extended spectrum beta lactamase (ESBL) resistance; G93.49 Other encephalopathy; N39.0 Urinary tract infection, site not specified; Z16.24 Resistance to multiple antibiotics; R64 Cachexia; E11.22 Type 2 diabetes mellitus with diabetic chronic kidney disease; B96.1 Klebsiella pneumoniae [K. pneumoniae] as the cause of diseases classified elsewhere; E03.9 Hypothyroidism, unspecified; E86.1 Hypovolemia; E87.6 Hypokalemia; E88.09 Other disorders of plasma-protein metabolism, not elsewhere classified; Z79.4 Long term (current) use of insulin; Z86.16 Personal history of COVID-19; Z87.440 Personal history of urinary (tract) infections; Z93.1 Gastrostomy status; N18.9 Chronic kidney disease, unspecified; F03.90 Unspecified dementia, unspecified severity, without behavioral disturbance, psychotic disturbance, mood disturbance, and anxiety; R13.10 Dysphagia, unspecified; F32.9 Major depressive disorder, single episode, unspecified; I12.9 Hypertensive chronic kidney disease with stage 1 through stage 4 chronic kidney disease, or unspecified chronic kidney disease; L90.5 Scar conditions and fibrosis of skin; Z22.322 Carrier or suspected carrier of Methicillin resistant Staphylococcus aureus; Z87.01 Personal history of pneumonia (recurrent); M24.552 Contracture, left hip; M24.551 Contracture, right hip; I25.2 Old myocardial infarction; Z20.822 Contact with and (suspected) exposure to COVID-19; Z79.01 Long term (current) use of anticoagulants; Z86.718 Personal history of other venous thrombosis and embolism
CPT/HCPCS: 36415; 71045-TC; 80048-TC; 80076-TC; 80202-TC; 81001; 82962-TC; 83605-TC; 83735-TC; 84100-TC; 84484-TC; 85025-TC; 85730-TC; 87040-TC; 87081-TC; 87086-TC; 87186-TC; A6253; C9803; G0378; J2185; J2405; J2543; J3370; J7030; J7050; J7060